=== PATIENT | female | born 1945 | race Caucasian/White ===

== ENCOUNTER 2016-10-02 12:53 | Inpatient (IN) | payer OTHER, MEDICARE ==
[~2016-10-02] VITALS: Ht 152.4 cm; Wt 77.1 kg
[~2016-10-02 12:53] MED LIST: COZAAR 50MG TAB50 MG PO; DIOVAN 160 MG160 MG PO; ELIQUIS5 MG PO; FLONASE120 SPRAY/ NASB; HYDRODIURIL 2525 MG PO; PROAIR HFA8.5 GM INH; XARELTO15 MG PO
--- NOTE | 2016-10-02 13:09 | ED GENERAL ADULT ---
History of Present Illness General Chief Complaint: General Adult Stated Complaint: BIBA, GENERAL WEAKNESS Source: patient, family, old records, EMS Exam Limitations: no limitations Vital Signs & Intake/Output Vital Signs & Intake/Output Vital Signs Date Time Temp Pulse Resp B/P Pulse O2 O2 Flow FiO2 Ox Delivery Rate 10/02 1831 98.3 70 18 121/57 97 Room Air 10/02 1452 99.0 85 18 110/62 94 Room Air 10/02 1443 100.7 10/02 1303 94 Room Air 10/02 1259 101.6 97 16 121/74 94 Room Air Allergies Coded Allergies: NO KNOWN ALLERGIES (03/01/12) Reconcile Medications Albuterol Sulfate (Proair Hfa) 90 MCG HFA.AER.AD 2 PUF INH Q4-6 PRN PRN BREATHING PROBLEMS (Reported) Apixaban (Eliquis) 5 MG TABLET 1 TAB PO BID BLOOD THINNER (Reported) Diltiazem HCl (Diltiazem 24HR ER) 120 MG CAP.ER.24H 1 CAP PO DAILY HEART ( Reported) Furosemide 20 MG TABLET 1 TAB PO DAILY WATER PILL (Reported) Lenalidomide (Revlimid) 10 MG CAPSULE 1 CAP PO DAILY UNKNOWN (Reported) Lidocaine HCl (Lidocaine) 5 % OINT...G. 1 SHASHI TOP TID PRN PAIN (Reported) Lorazepam 0.5 MG TABLET 1 TAB PO BIDP PRN ANXIETY (Reported) Oxycodone HCl (Oxycontin) 20 MG TAB.ER.12H 1 TAB PO BID PAIN (Reported) Oxycodone HCl 5 MG TABLET 1 TAB PO Q4 HRS NEEDED PRN PAIN (Reported) Pantoprazole Sodium 40 MG TABLET.DR 1 TAB PO DAILY GI (Reported) Polyethylene Glycol 3350 17 GRAM POWD.PACK 1 PAC PO DAILY LAXATIVE, CONSTIPATION (Reported) Sertraline HCl 50 MG TABLET 1 TAB PO DAILY MENTAL HEALTH (Reported) Valsartan/Hydrochlorothiazide (Diovan Hct 160-25 MG Tablet) 160 MG-25 MG TABLET 1 TAB PO DAILY HEART (Reported) Zolpidem Tartrate 5 MG TABLET 1 TAB PO QPM SLEEP (Reported) Triage Note: 71 Y/O FEMALE ML FROM HOME FOR EVAL OF GENERAL WEAKNESS. PT ARRVIES ALERT AND ORIENTED X 4, SPEAKING CLEARLY WITH NO DISTRESS NOTED. PT STATES SHE HAD BACK SURGERY IN JULY AND THEN WENT TO REHAB UNTIL 09/04/16; HAS NOT BEEN DOING WELL SINCE. STATES SHE HAS NO APPETITE/DECREASED PO INTAKE AND HAS BEEN VERY WEAK. TODAY WAS UNABLE TO WALK. PT DENIES COUGH OR URI SYMPTOMS. DENIES C/P. DENIES SOB. STATES SHE HAD A CATHETER IN REHAB AND AREA HAS BEEN "SENSATIVE SINCE". SINCE URINARY BURNING. TEMP ON ARRIVAL 101.6 PA GUILHERME Ruth INTO [facility] Triage Nurses Notes Reviewed? yes HPI: Patient is a 71-year-old female brought in by ambulance for evaluation of generalized weakness. Patient and her report generalized weakness for the past 2 days, progressively worsening. Patient is on chemotherapy for multiple myeloma, takes medication orally daily. Patient's reports that patient has been shaky over the past 2 days. Patient has not been able to ambulate secondary to her weakness. Positive fever measured in the emergency department, patient and her were unaware of her fever. Mild vaginal discomfort, patient is unsure if she has a urinary tract infection. Low back pain, has been intermittent and fluctuating since patient had a lumbar fusion 2 months ago. Pain is currently severe. Denies chest pain, dyspnea, abdominal pain, vomiting, diarrhea, rashes (ISAAC ALONZO) Past History Travel History Traveled to [place] past 21 day No Medical History Any Pertinent Medical History? see below for history Neurological: NONE EENT: NONE Cardiovascular: hypertension Respiratory: NONE Gastrointestinal: NONE Hepatic: NONE Renal: NONE Musculoskeletal: NONE Psychiatric: NONE Endocrine: NONE Blood Disorders: DVT, PE Cancer(s): MULTIPLE MYELOMA History of MRSA: No History of VRE: No History of CDIFF: No Pneumonia Vaccine: 07/26/11 Surgical History Surgical History: LUMBAR SURGERY july 2016 Psychosocial History Who do you live with Spouse Services at Home None What is your primary language Montserratian Tobacco Use: Never used Family History Family History, If Any: FATHER ([place]). Hx Contributory? No (ISAAC ALONZO) Review of Systems Review of Systems Constitutional: Reports: malaise, weakness. EENTM: Reports: no symptoms. Respiratory: Denies: cough, short of breath. Cardiovascular: Denies: chest pain. GI: Denies: abdominal pain, diarrhea, nausea, vomiting. Genitourinary: Denies: frequency, urgency. Musculoskeletal: Reports: back pain. Skin: Reports: no symptoms. Neurological/Psychological: Reports: no symptoms. Hematologic/Endocrine: Reports: no symptoms. Immunologic/Allergic: Reports: no symptoms. (ISAAC ALONZO) Physical Exam Physical Exam General Appearance: alert, awake Head: atraumatic, normal appearance Eyes: Bilateral: normal appearance, PERRL, EOMI. Ears, Nose, Throat: normal pharynx, normal ENT inspection, hearing grossly normal Neck: normal inspection, supple, full range of motion Respiratory: no respiratory distress, lungs clear Cardiovascular: tachycardia Gastrointestinal: soft, non-tender Back: normal range of motion, no vertebral tenderness, no paraspinal lumbar tenderness Extremities: 3+ bilateral lower extremity edema Neurologic/Psych: awake, alert, oriented x 3 Skin: warm/dry Lymphatic: no anterior cervical alexandre Core Measures ACS in differential dx? No CVA/TIA Diagnosis: No Severe Sepsis Present: No Septic Shock Present: No (ISAAC ALONZO) Progress Differential Diagnoses I considered the following diagnoses in my evaluation of the patient: Urinary tract infection, pneumonia, sepsis, bacteremia, influenza, viral syndrome Plan of Care: Orders Procedure Date/time Status Heart Healthy Diet 10/03 B Active CBC WITHOUT DIFFERENTIAL 10/03 06 Active BASIC ELECTROLYTES PLUS BUN&CR 10/03 0600 Active Heart Healthy Diet 10/02 D Complete Bui, Insertion/Removal/Asses 10/02 1809 Active Pathway - chart 10/02 1735 Active Patient Data 10/02 1735 Active RAPID VIRAL INFLUENZA A 10/[address] THOR SPINE W IV CONTRAST 10/[address] PELVIS W IV CONTRAST 10/[address] LUMB SPINE W IV CONTRAST 10/02 1714 Active Admit to inpatient 10/02 1624 Active Vital Signs 10/02 1624 Active Code Status 10/02 1624 Active LACTIC ACID 10/02 1609 Active Intake & Output 10/02 1505 Active URINALYSIS 10/02 1457 Complete RAPID VIRAL INFLUENZA A 10/02 1402 Complete CULTURE,URINE 10/02 1309 Active BLOOD CULTURE 10/02 1309 Active LACTIC ACID 10/02 1309 Complete COMPREHENSIVE METABOLIC PANEL 10/02 1309 Complete CBC WITHOUT DIFFERENTIAL 10/02 1309 Complete EKG 10/02 1309 Active PT Evaluate & Treat 10/02 UNK Active House Staff 10/02 UNK Active VTE Mechanical Prophylaxis 10/02 UNK Active Vital Signs 10/02 UNK Active Current Medications Sig/Saira Start time Last Medication Dose Stop Time Status Admin Ceftriaxone Sodium 1,000 MG DAILY 10/03 1000 AC (Rocephin) Sodium Chloride 100 ML (Normal Saline 0.9%) Diltiazem HCl 120 MG DAILY 10/03 1000 AC (Cardizem CD) Furosemide 20 MG DAILY 10/03 1000 AC (Lasix) Sertraline HCl 50 MG DAILY 10/03 1000 AC (Zoloft) Omeprazole 40 MG DAILY AC 10/03 0700 AC (Prilosec) Apixaban 5 MG BID 10/02 2199 AC (Eliquis) Oxycodone HCl 20 MG BID 10/02 220 AC (OxyCONTIN) Zolpidem Tartrate 5 MG QPM 10/02 220 AC (Ambien) Albuterol Sulfate 2 PUF Q4-6 PRN PRN 10/02 174 AC (Ventolin) Lorazepam 0.5 MG BID PRN 10/02 174 AC (Ativan) 10/09 174 Non-Formulary 0 SEE ADMIN CRITERIA 10/02 1744 UNVr Medication (NON FORMULARY) Oxycodone HCl 5 MG Q4 HRS NEEDED PRN 10/02 174 AC (Roxicodone) Acetaminophen 650 MG Q6P PRN 10/02 1730 AC (Tylenol) Sodium Chloride 1,000 ML ONCE ONE 10/02 1615 AC (Normal Saline 0.9%) 10/03 0534 Laboratory Tests 10/02/16 1432: Anion Gap 13, Estimated GFR > 60, BUN/Creatinine Ratio 13.8, Glucose 112 H, Lactic Acid 1.8, Calcium 9.1, Total Bilirubin 0.7, AST 26, ALT 33, Alkaline Phosphatase 95, Total Protein 6.8, Albumin 3.9, Globulin 2.9, Albumin/Globulin Ratio 1.3, CBC w Diff NO MAN DIFF REQ, RBC 3.67 L, MCV 93.6, MCH 31.0, RDW 15.0 H, MPV 9.1, Gran % 74.4, Lymphocytes % 13.8 L, Monocytes % 11.6 H, Eosinophils % 0.1, Basophils % 0.1, Absolute Granulocytes 8.4 H, Absolute Lymphocytes 1.6, Absolute Monocytes 1.3 H, Absolute Eosinophils 0, Absolute Basophils 0, PUBS MCHC 33.2 10/02/16 1139: Urine Color YEL, Urine Clarity CLDY H, Urine pH 6.0, Ur Specific [place] 1.020, Urine Protein 30 H, Urine Ketones NEG, Urine Nitrite POS H, Urine Bilirubin NEG, Urine Urobilinogen 0.2, Ur Leukocyte Esterase LARGE H, Ur Microscopic SEDIMENT EXAMINED, Urine RBC 1-3, Urine WBC PACKD H, Ur Epithelial Cells FEW, Urine Bacteria MANY H, Urine Mucus FEW, Urine Hemoglobin SMALL H, Urine Glucose NEG Microbiology 10/02 1715 NASOPHARYN: Influenza Virus A & B Rapid Smear - COMP 10/02 1514 NASOPHARYN: Influenza Virus A & B Rapid Smear - COMP 10/02 1445 BLOOD: Blood Culture - RECD 10/02 1432 BLOOD: Blood Culture - RECD 10/02 1139 URINE ROUT: Urine Culture - RECD 10/02/2016 3:07:34 PM: Discussed with Dr. Carrington 10/02/2016 4:29:31 PM: Results of labs, chest x-ray, urinalysis discussed with the patient and her family. IV ceftriaxone ordered for cover of urinary tract infection. Patient continues with generalized weakness and unable to safely ambulate. Discussed with Dr. Baires for admission. (WALLY VASQUEZ,ISAAC) Diagnostic Imaging: Viewed by Me: Radiology Read. Discussed w/RAD: Radiology Read. Radiology Impression: PATIENT: MARGAUX COFFEY PRESENT AGE: 71 PATIENT ACCOUNT NO: [id number] : 43 LOCATION: [facility] ORDERING PHYSICIAN: ISAAC VASQUEZ SERVICE DATE: 10/02/16 EXAM TYPE: RAD - XRY-PORTABLE CHEST XRAY EXAMINATION: XR PORTABLE CHEST CLINICAL INFORMATION: 71-year-old female with weakness and fever. Evaluate for pneumonia. COMPARISON: Chest radiograph 03/05/2014 TECHNIQUE: Portable AP view of the chest was obtained. FINDINGS: Limited evaluation secondary to low lung volumes and AP lordotic positioning. Cardiac silhouette is enlarged. No definite focal consolidation. No pleural effusions or pneumothorax. No acute osseous abnormality. IMPRESSION: Low lung volumes. No definite focal consolidation; however, evaluation is limited. Recommend follow-up PA and lateral radiographs when patient able. DICTATED BY: GABRIEL DYER DO DATE/TIME DICTATED:10/02/161401 FIBREGLASS LAY UP WORKER:ANNA DATE/TIME TRANSCRIBED:03/10/17 / 1402 CONFIDENTIAL, DO NOT COPY WITHOUT APPROPRIATE AUTHORIZATION. <Electronically signed in Other Vendor System> SIGNED BY: GOMEZ DEVLINGABRIEL G 10/02/16 1410 Initial ED EKG: SINUS RHYTHM WITH MULTIPLE PREMATURE BEATS NO ACUTE ST/T WAVE CHANGES COMPARED TO PREVIOUS EKG (ISAAC ALONZO) Departure Departure Time of Disposition: 1620 Disposition: STILL A PATIENT Condition: Stable Clinical Impression Primary Impression: Sepsis due to urinary tract infection Referrals: ROYER SHAW MD (PCP/Family) Departure Forms: Customer Survey General Discharge Information Admission Note Spoke With: BARRERA BAIRES MD Documentation of Exam: Documentation of any treatments & extenuating circumstances including Concerns Regarding Discharge (functional status, medication knowledge or non-compliance, living conditions, etc.) that warrant an admission rather than observation: IV antibiotics, dang culture. Patient on chemotherapy(immunosuppressed state) with fevers and severe weakness. Significant change from patient's functional baseline. Patient does not appear safe for discharge (ISAAC ALONZO) PA/OUTER DIAMETER GRINDER Co-Sign Statement Statement: ED Attending supervision documentation- [X] I saw and evaluated the patient. I have also reviewed all the pertinent lab results and diagnostic results. I agree with the findings and the plan of care as documented in the PA's/OUTER DIAMETER GRINDER's documentation. [] I have reviewed the ED Record and agree with the PA's/OUTER DIAMETER GRINDER's documentation. [] Additions or exceptions (if any) to the PAs/OUTER DIAMETER GRINDER's note and plan are summarized below: [] (HIRO CARRINGTON DO) Critical Care Note Critical Care Note Critical Care Time: non-applicable (ISAAC ALONZO)
--- NOTE | 2016-10-02 14:10 | RADIOLOGY REPORT ---
EXAMINATION: XR PORTABLE CHEST CLINICAL INFORMATION: 71-year-old female with weakness and fever. Evaluate for pneumonia. COMPARISON: Chest radiograph 03/05/2014 TECHNIQUE: Portable AP view of the chest was obtained. FINDINGS: Limited evaluation secondary to low lung volumes and AP lordotic positioning. Cardiac silhouette is enlarged. No definite focal consolidation. No pleural effusions or pneumothorax. No acute osseous abnormality. IMPRESSION: Low lung volumes. No definite focal consolidation; however, evaluation is limited. Recommend follow-up PA and lateral radiographs when patient able.
[2016-10-02] MEDS ORDERED: DILTIAZEM 24HR120 MG PO (14:32)
[2016-10-02] MEDS ORDERED: OXYCONTIN20 M1 PO (14:32)
[2016-10-02] MEDS ORDERED: FUROSEMIDE20 M1 PO (14:32)
[2016-10-02] MEDS ORDERED: ELIQUIS5 M1 PO (14:33)
[2016-10-02] MEDS ORDERED: PANTOPRAZOLE SO40 M1 PO (14:33)
[2016-10-02] MEDS ORDERED: OXYCODONE HCL5 M1 PO (14:34)
[2016-10-02] MEDS ORDERED: REVLIMID10 M1 PO (14:34)
[2016-10-02] MEDS ORDERED: ZOLPIDEM TARTRAT5 M1 PO (14:35)
[2016-10-02] MEDS ORDERED: POLYETHYLENE GL17 GM PO (14:36)
[2016-10-02] MEDS ORDERED: SERTRALINE HCL50 MG PO (14:36)
[2016-10-02] MEDS ORDERED: LIDOCAINE35.44 GM TOP (14:37)
[2016-10-02] MEDS ORDERED: LORAZEPAM0.5 M1 PO (14:38)
[2016-10-02] MEDS ORDERED: DIOVAN HCT 1601 EAC1 PO (14:39)
[2016-10-02 15:03] LABS: ABSOLUTE BASOPHIL COUNT 0 /CUMM (0.0-0.2); ABSOLUTE EOSINOPHIL COUNT 0 /CUMM (0.0-0.7); ABSOLUTE GRANULOCYTE CT 8.4 /CUMM (1.4-6.5); ABSOLUTE LYMPH COUNT 1.6 /CUMM (1.2-3.4); ABSOLUTE MONOCYTE COUNT 1.3 /CUMM (0.10-0.60); BASOPHIL % 0.1 % (0.0-2.0); EOSINOPHIL % 0.1 % (0-5); GRANULOCYTE % 74.4 % (42.2-75.2); HEMATOCRIT 34.3 % (37-47); MEAN CORPUSCULAR HGB CONC 33.2 G/DL (33.0-37.0); MEAN CORPUSCULAR VOLUME 93.6 FL (81.0-99.0); MEAN PLATELET VOLUME 9.1 FL (7.4-10.4); PLATELET COUNT 347 /CUMM (130-400); RED BLOOD CELL CT 3.67 /CUMM (4.20-5.40); WHITE BLOOD CELL COUNT 11.3 /CUMM (4.8-10.8)
--- NOTE | 2016-10-02 17:29 | History & Physical ---
SENTHIL MARR,[facility] 10/02/16 6919: General Information and HPI MD Statement: I have seen and personally examined MARGAUX COFFEY and documented this H&P. The patient is a 71 year old F who presented with a patient stated chief complaint of [I feel weak and have muscle aches and pains]. Source of Information: patient, family, old records Exam Limitations: no limitations History of Present Illness: This is a 71-year-old lady with past history of provoked DVT in 2012 which required 6 months anticoagulation, hypertension, recent diagnosis of multiple myeloma in January 2016, recent back surgery in July 2016 with multi disc level noé and screw placement, now on anticoagulation because of her myeloma for DVT prophylaxis, recent IVC filter placement that presented to the emergency room with her family with a chief complaint of weakness and muscle aches and pains that have been going on for greater than 48 hours. Patient states that after her surgery she went to short-term rehabilitation where she developed a urinary tract infection. They had to straight catheter there are couple of times because she states that "my bladder fell asleep". Since being home from her surgery she ambulates minimally with a walker states that she gets significant back pain. While in the ER her urinalysis revealed a urinary tract infection and she was found to be febrile however the patient herself denied feeling warm or merit any tactile fevers. At present she denies any chest Pain, shortness of breath, nausea, vomiting, diarrhea, fevers, chills, recent illnesses or sick contacts. She denies any UTI like symptoms. Allergies/Medications Allergies: Coded Allergies: NO KNOWN ALLERGIES (03/01/12) Home Med list Albuterol Sulfate (Proair Hfa) 90 MCG HFA.AER.AD 2 PUF INH Q4-6 PRN PRN BREATHING PROBLEMS (Reported) Apixaban (Eliquis) 5 MG TABLET 1 TAB PO BID BLOOD THINNER (Reported) Diltiazem HCl (Diltiazem 24HR ER) 120 MG CAP.ER.24H 1 CAP PO DAILY HEART ( Reported) Furosemide 20 MG TABLET 1 TAB PO DAILY WATER PILL (Reported) Lenalidomide (Revlimid) 10 MG CAPSULE 1 CAP PO DAILY UNKNOWN (Reported) Lidocaine HCl (Lidocaine) 5 % OINT...G. 1 SHASHI TOP TID PRN PAIN (Reported) Lorazepam 0.5 MG TABLET 1 TAB PO BIDP PRN ANXIETY (Reported) Oxycodone HCl (Oxycontin) 20 MG TAB.ER.12H 1 TAB PO BID PAIN (Reported) Oxycodone HCl 5 MG TABLET 1 TAB PO Q4 HRS NEEDED PRN PAIN (Reported) Pantoprazole Sodium 40 MG TABLET.DR 1 TAB PO DAILY GI (Reported) Polyethylene Glycol 3350 17 GRAM POWD.PACK 1 PAC PO DAILY LAXATIVE, CONSTIPATION (Reported) Sertraline HCl 50 MG TABLET 1 TAB PO DAILY MENTAL HEALTH (Reported) Valsartan/Hydrochlorothiazide (Diovan Hct 160-25 MG Tablet) 160 MG-25 MG TABLET 1 TAB PO DAILY HEART (Reported) Zolpidem Tartrate 5 MG TABLET 1 TAB PO QPM SLEEP (Reported) Past History Travel History Traveled to [place] past 21 day No Medical History Neurological: NONE EENT: NONE Cardiovascular: hypertension Respiratory: NONE Gastrointestinal: NONE Hepatic: NONE Renal: NONE Musculoskeletal: NONE Psychiatric: NONE Endocrine: NONE Blood Disorders: NONE, PE Cancer(s): MULTIPLE MYELOMA History of MRSA: No History of VRE: No History of CDIFF: No Surgical History Surgical History: LUMBAR SURGERY JULY 2016 Past Family/Social History Family History Relations & Conditions if any FATHER ([place]). Psychosocial History Services at Home: None Review of Systems Review of Systems Constitutional: Reports: see HPI. Exam & Diagnostic Data Last 24 Hrs of Vital Signs/I&O Vital Signs Date Time Temp Pulse Resp B/P Pulse O2 O2 Flow FiO2 Ox Delivery Rate 10/02 1452 99.0 85 18 110/62 94 Room Air 10/02 1443 100.7 10/02 1303 94 Room Air 10/02 1259 101.6 97 16 121/74 94 Room Air Intake & Output 10/02 1600 10/02 0800 10/02 0000 Intake Total 1000 Output Total Balance 1000 Intake, IV 1000 Patient 185 lb Weight Physical Exam General Appearance Alert, Oriented X3, Cooperative HEENT Atraumatic, PERRLA, EOMI Lymphatic Axillary nl Cardiovascular Regular Rate, Normal S1, Normal S2 Lungs Clear to Auscultation, Normal Air Movement Abdomen Normal Bowel Sounds, Soft, No Tenderness Extremities 2+ LE EDEMA Last 24 Hrs of Labs/Robin: Laboratory Tests 10/02/16 1432: Anion Gap 13, Estimated GFR > 60, BUN/Creatinine Ratio 13.8, Glucose 112 H, Lactic Acid 1.8, Calcium 9.1, Total Bilirubin 0.7, AST 26, ALT 33, Alkaline Phosphatase 95, Total Protein 6.8, Albumin 3.9, Globulin 2.9, Albumin/Globulin Ratio 1.3, CBC w Diff NO MAN DIFF REQ, RBC 3.67 L, MCV 93.6, MCH 31.0, RDW 15.0 H, MPV 9.1, Gran % 74.4, Lymphocytes % 13.8 L, Monocytes % 11.6 H, Eosinophils % 0.1, Basophils % 0.1, Absolute Granulocytes 8.4 H, Absolute Lymphocytes 1.6, Absolute Monocytes 1.3 H, Absolute Eosinophils 0, Absolute Basophils 0, PUBS MCHC 33.2 10/02/16 1139: Urine Color YEL, Urine Clarity CLDY H, Urine pH 6.0, Ur Specific [place] 1.020, Urine Protein 30 H, Urine Ketones NEG, Urine Nitrite POS H, Urine Bilirubin NEG, Urine Urobilinogen 0.2, Ur Leukocyte Esterase LARGE H, Ur Microscopic SEDIMENT EXAMINED, Urine RBC 1-3, Urine WBC PACKD H, Ur Epithelial Cells FEW, Urine Bacteria MANY H, Urine Mucus FEW, Urine Hemoglobin SMALL H, Urine Glucose NEG Microbiology 10/02 1514 NASOPHARYN: Influenza Virus A & B Rapid Smear - COMP 10/02 1445 BLOOD: Blood Culture - RECD 10/02 1432 BLOOD: Blood Culture - RECD 10/02 1139 URINE ROUT: Urine Culture - RECD Diagnostic Data EKG Results Rate 97, SD 140, QRS 78, QTC 452 PVCs CXR Results IMPRESSION: Low lung volumes. No definite focal consolidation; however, evaluation is limited. Recommend follow-up PA and lateral radiographs when patient able. Assessment/Plan Assessment: Assessment- 1. Urosepsis 2. Hx of Multiple myeloma 3. Hx of recent back hardware placement 4. B/L LE pitting edema 2/2 volume overload 5. HTN 6. Chronic back pain 7. Depression Plan- GM admit Vitals per protocol d/c IVF 2/2 pitting edema Lasix 20 mg IV, 1 dose Panculture IV ceftriaxine 1 gm daily Repeat flu swab CT thoracic, lumbar and sacral spine to r/o abscess vs infected hardware Continue home meds Heat healthy diet Pain pathway DVT ppx with Eliquis Full code As Ranked By This Provider Problem List: 1. Sepsis due to urinary tract infection 2. Hypertension 3. Pulmonary embolism Core Measures/Miscellaneous Acute Coronary Syndrome ACS Diagnosis: No Cerebrovascular Accident CVA/TIA Diagnosis: No Congestive Heart Failure CHF Diagnosis: No Venous Thromboembolism VTE Risk Factors: Age > 40 No Mech VTE prophylaxis d/t: No contraindications No VTE Pharm Prophylaxis d/t: No contraindications VTE Diagnosis: No VTE Type: NONE VTE Confirmed by (Test): NONE Severe Sepsis Severe Sepsis Present: No Septic Shock Septic Shock Present: No Miscellaneous Documentation Attending Case Discussed With: DR. BAIRES Primary Care Physician: ROYER SHAW MD Patient sees these Specialists ONCOLOGIST- DR. PETERSON PCP- DR. SHAW Level of Patient Care: General Medicine Resident Review Statement Resident Statement: examined this patient, discussed with spring internship BARRERA BAIRES MD 10/02/16 2199: Attending MD Review Statement Attending Statement Attending MD Statement: examined this patient, discuss w/resident/PA/HAIR BOILER OPERATOR, agreed w/resident/PA/HAIR BOILER OPERATOR, reviewed EMR data (avail)
--- NOTE | 2016-10-02 20:38 | CT SCAN REPORT ---
EXAMINATION: CT OF THE THORACIC SPINE WITH CONTRAST CT OF THE LUMBAR SPINE WITHOUT CONTRAST CLINICAL INFORMATION: Rule out abscess versus infected hardware. Back pain. COMPARISON: None. TECHNIQUE: Multidetector helical imaging was performed in the axial plane following intravenous administration of 94 mL of Optiray 320. Dose is 2102.07 mGy-cm. FINDINGS: The patient has had prior vertebral body augmentation at the T12 level with cement material visible in the vertebral body on the right side. Posterior fusion rods and transpedicular screws span from the T10-L2 levels. There is no abnormal lucency around the pedicle screws. No hardware fracture is identified. Particulate bone graft material is present in the posterior paraspinal soft tissues without solid incorporation. Soft tissue stranding is present in the posterior paraspinal soft tissues, though no obvious organized peripherally enhancing drainable fluid collection is seen. The retroperitoneal soft tissues at the level of the fusion hardware appear normal. The psoas muscles are normal in appearance. Lytic changes in the right T12 pedicle, posterior elements, and rib are presumably due to the patient's known history of multiple myeloma. Significant lower cervical spondylosis is noted. There is a mild anterolisthesis at C7-T1. No compression fractures are identified. There is moderate multilevel mid thoracic disc space narrowing. There are no compression fractures or significant central canal stenosis. 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 There is a mild anterior subluxation at L5-S1 with unroofing of the disc. Significant foraminal narrowing is also noted at the L5-S1 levels, worse on the right side. There are posterior disc bulges throughout the lumbar spine with mild multilevel central canal stenosis and facet arthropathy. No abnormal soft tissue enhancement is identified. Multiple calcifications are visible in the thyroid gland. The thoracic paraspinal soft tissues are unremarkable superior to the level of hardware. A small right-sided layering pleural effusion is visible. There are dependent atelectatic changes in both lungs. An IVC filter is in place. There is a small hiatal hernia. The renal nephrograms are symmetric. IMPRESSION: Posterior fusion hardware in place spanning from the T10-L2 levels without fracture or disruption. Particulate bone graft material in the posterior paraspinal soft tissues around aforementioned hardware without solid incorporation. Imaging findings of prior vertebral body augmentation with a mild loss of vertebral body height at the T12 level. No drainable fluid collection. Multilevel thoracolumbar spondylosis and mild anterolisthesis at L5-S1. Imaging findings discussed with Dr. Melton at 8:30 PM on 10/02/2016.
--- NOTE | 2016-10-02 20:41 | CT SCAN REPORT ---
EXAMINATION: CT PELVIS WITH IV CONTRAST CLINICAL INFORMATION: Back pain. Evaluate for abscess versus infected hardware. Status post fusion of the thoracolumbar spine in July 2016. COMPARISON: None. TECHNIQUE: Helical scanning was performed with submillimeter collimation through the pelvis with 94 mL of Optiray 320 intravenous contrast. Sagittal and coronal multiplanar 2-D reconstructions were obtained. DLP: 975 mGy-cm FINDINGS: RADIO ANNOUNCER: Yam Curer images of the pelvis demonstrate partially visualized longitudinal rods and transpedicular screws along the thoracolumbar spine. An IVC filter is present within the right hemiabdomen. PELVIS: The urinary bladder is decompressed by an indwelling Bui catheter. Excreted intravenous contrast is identified within the bilateral distal ureters. The imaged loops of bowel within the lower abdomen and pelvis appear unremarkable. No organizing fluid collections are present within the imaged portions of the lower abdomen or pelvis. There is no significant deep pelvic or inguinal adenopathy. The uterus is surgically absent. No adnexal masses are identified. OSSEOUS STRUCTURES: No acute abnormality of the pelvis is identified. No grossly displaced pelvic fractures are noted. The iliopectineal and ilioischial lines are intact. There is no appreciable fracture of the bilateral hips and there is no appreciable dislocation of the bilateral hips. There are partially visualized degenerative changes of the lower lumbar spine with grade 1 anterolisthesis of L5 on S1. There is partially visualized moderate facet arthrosis of the lumbosacral spine. IMPRESSION: 1. No acute osseous abnormality involving the pelvis. No organizing fluid collections are visualized within the imaged portions of the lower abdomen or pelvis or within the imaged soft tissues of the pelvis. 2. Partially visualized degenerative changes of the lower lumbosacral spine, with grade 1 anterolisthesis of L5 on S1.
[2016-10-02 23:45] VITALS: BP 130/68
[2016-10-03 06:47] VITALS: BP 140/72
--- NOTE | 2016-10-03 08:01 | PN- Housestaff ---
See Addendum Subjective Follow-up For: Urosepsis Hf of Multiple myeloma Subjective: Ms Case was seen and examined this morning. She is resting comfortably in bed. Patient reports overnight she continued to be in pain. Rated at a 9 out of 10 in severity. Described as a dull pain. Worse with movement and pressure. She denies any burning, dysuria, frequency, foul-smelling urine. She does currently have a Bui in place. Patient also endorses bilateral lower extremity edema. She denies any fever, chills, nausea, vomiting. is at bedside and helped with part of the clinical encounter. Review of Systems Constitutional: Reports: see HPI. Objective Last 24 Hrs of Vital Signs/I&O Vital Signs Date Time Temp Pulse Resp B/P Pulse O2 O2 Flow FiO2 Ox Delivery Rate 10/03 1505 98.7 87 20 122/66 93 10/03 1436 98.6 10/03 1400 102.5 10/03 1310 102.5 10/03 1149 102.9 10/03 1146 102.9 10/03 0800 Room Air 10/03 0647 98.5 84 18 140/72 94 Room Air 10/02 2345 99.0 75 18 130/68 93 Room Air 10/02 1831 98.3 70 18 121/57 97 Room Air Intake & Output 10/03 1600 10/03 0800 10/03 0000 Intake Total 740 360 Output Total 350 400 700 Balance 390 -40 -700 Intake, IV 500 Intake, Oral 240 360 Number 0 Bowel Movements Output, Urine 350 400 700 Patient 77.111 kg 77.111 kg Weight Physical Exam General Appearance: Alert, Oriented X3, Cooperative Cardiovascular: Regular Rate, Normal S1, Normal S2 Lungs: Clear to Auscultation Abdomen: Normal Bowel Sounds, Soft, No Tenderness Neurological: Normal Speech Extremities: No Clubbing, No Cyanosis, Edema 1+ Current Medications: Current Medications Sig/Saira Start time Last Medication Dose Route Stop Time Status Admin Acetaminophen 1,000 MG ONCE ONE 10/03 1345 DC 10/03 N/A 1 UNIT IV 10/03 1359 1400 Acetaminophen 650 MG Q6P PRN 10/02 1730 AC 10/03 PO 1149 Albuterol Sulfate 2 PUF Q4-6 PRN PRN 10/02 1745 AC INH Apixaban 5 MG BID 10/02 2200 AC 10/03 PO 0921 Ceftazidime 2,000 MG IQ8 10/03 1600 AC IV Ceftriaxone Sodium 1,000 MG DAILY 10/04 1000 CAN IV Ceftriaxone Sodium 1,000 MG DAILY 10/03 1000 DC 10/03 Sodium Chloride 100 ML IV 0923 Ceftriaxone Sodium 0 .STK-MED ONE 10/02 1726 DC .ROUTE Diltiazem HCl 120 MG DAILY 10/03 1000 AC 10/03 PO 0921 Docusate Sodium 100 MG BID 10/03 1000 AC 10/03 PO 0921 Furosemide 20 MG DAILY 10/03 1000 AC 10/03 PO 0922 Furosemide 0 .STK-MED ONE 10/02 1757 DC IV Furosemide 20 MG ONCE ONE 10/02 1745 DC 10/02 IV 10/02 1746 1807 Ibuprofen 400 MG ONCE ONE 10/03 1345 CAN PO 10/03 1346 Lorazepam 0.5 MG BID PRN 10/02 1745 AC 10/03 PO 10/09 1744 1143 Omeprazole 40 MG DAILY AC 10/03 0700 AC 10/03 PO 0604 Oxycodone HCl 20 MG BID 10/02 2200 AC 10/03 PO 0922 Oxycodone HCl 5 MG Q4 HRS NEEDED PRN 10/02 1745 AC 10/03 PO 1144 Polyethylene Glycol 17 GM DAILY 10/03 1000 AC 10/03 PO 0923 Sertraline HCl 50 MG AT BEDTIME 10/03 2200 AC PO Sertraline HCl 50 MG DAILY 10/03 1000 DC PO Sertraline HCl 50 MG ONCE ONE 10/03 0030 DC 10/03 PO 10/03 0031 0031 Sodium Chloride 500 ML BOLUS ONE 10/03 1215 DC 10/03 IV 10/03 1314 1317 Sodium Chloride 1,000 ML ONCE ONE 10/02 1615 DC IV 10/03 0534 Sodium Chloride 1,000 ML ONCE ONE 10/02 1315 DC 10/02 IV 10/02 2114 1443 Zolpidem Tartrate 5 MG QPM 10/02 220 AC 10/03 PO 0043 Last 24 Hrs of Lab/Robin Results Last 24 Hrs of Labs/Mics: Laboratory Tests 10/03/16 1444: Lactic Acid 0.8 10/03/16 0756: Anion Gap 9, Estimated GFR > 60, BUN/Creatinine Ratio 13.3, Creatine Kinase 85, CBC w Diff NO MAN DIFF REQ, RBC 3.19 L, MCV 94.4, MCH 31.1 H, RDW 14.8 H, MPV 8.7, Gran % 72.7, Lymphocytes % 11.9 L, Monocytes % 13.8 H, Eosinophils % 1.5, Basophils % 0.1, Absolute Granulocytes 6.3, Absolute Lymphocytes 1.0 L, Absolute Monocytes 1.2 H, Absolute Eosinophils 0.1, Absolute Basophils 0, PUBS MCHC 33.0 Microbiology 10/03 1224 BLOOD: Blood Culture - RECD 10/03 1224 BLOOD: Blood Culture - RECD 10/03 1159 URINE ROUT: Urine Culture - COLB 10/03 115 LOWER RESP: Respiratory Culture - COLB 10/03 115 LOWER RESP: Gram Stain - COLB 10/02 1715 NASOPHARYN: Influenza Virus A & B Rapid Smear - COMP Assessment/Plan Assessment: Ms Case is a 71-year-old woman with past medical history of multiple myeloma, hypertension and chronic back pain who presented to the emergency department following generalized weakness status post recently been discharged from short term rehabilitation. Urosepsis. On admission the patient did have an elevated white count of 11.3. This is subsequently come down to 8.7. She did have a evidence of a dirty urine and was started on ceftriaxone. The patient continued to be febrile. Her antibiotic has been switched to ceftazidime IV 2000 mg every 8. Repeat blood cultures have been ordered. Urine cultures were positive for gram-negative rods. Lasix 20 mg IV, 1 dose, given yesterday. Repeat flu swab has been negative. Owing to decreased mentation the patient was bolused 1 time 500 milliliters. Second visit to the patient after she received this bolus did reveal that the patient was feeling better. Following the recent administration of the IV Tylenol the fever did break.102.5-->98.7. Repeat chest x-ray ordered which showed no evidence of pneumonia or consolidation. A PA lateral x-ray was ordered showed no evidence of pneumonia or consolidation. Decreased Mentation and UE tremors Was called to the patient's bedside by the family stating that they were worried about the patient having bilateral upper extremity tremors as well as decreased mentation. Initial exam were within normal limits limits. No neurological deficits were noted. Saturations were checked patient was saturating 93% on room air. General conditioning Patient was able to work with PT this a.m. Diet Heat healthy diet DVT prophylaxis Eliquis Code Full code Problem List: 1. Sepsis due to urinary tract infection 2. Dyspnea 3. Asthma 4. Hypertension Pain Ratin Pain Location: Neck and Back Pain Pain Goal: Remain pain free Pain Plan: Oxycodone Tomorrow's Labs & Rationales: CBC: Monitor white cell count in the setting of acute infection. BEP: Monitor electrolytes.
[2016-10-03 09:00] LABS: ABSOLUTE BASOPHIL COUNT 0 /CUMM (0.0-0.2); ABSOLUTE EOSINOPHIL COUNT 0.1 /CUMM (0.0-0.7); ABSOLUTE GRANULOCYTE CT 6.3 /CUMM (1.4-6.5); ABSOLUTE MONOCYTE COUNT 1.2 /CUMM (0.10-0.60); BASOPHIL % 0.1 % (0.0-2.0); EOSINOPHIL % 1.5 % (0-5); GRANULOCYTE % 72.7 % (42.2-75.2); HEMATOCRIT 30.1 % (37-47); MEAN CORPUSCULAR HGB 31.1 PG (27.0-31.0); MEAN CORPUSCULAR VOLUME 94.4 FL (81.0-99.0); MEAN PLATELET VOLUME 8.7 FL (7.4-10.4); PLATELET COUNT 304 /CUMM (130-400); RBC DISTRIBUTION WIDTH 14.8 % (11.5-14.5); RED BLOOD CELL CT 3.19 /CUMM (4.20-5.40); WHITE BLOOD CELL COUNT 8.7 /CUMM (4.8-10.8)
--- NOTE | 2016-10-03 13:24 | RADIOLOGY REPORT ---
EXAMINATION: XR CHEST CLINICAL INFORMATION: Fever and chills. Evaluate for pneumonia. COMPARISON: Chest x-ray dated 10/02/2016 and 03/05/2014. TECHNIQUE: AP and lateral views of the chest were obtained. FINDINGS: Cardiac mediastinal silhouette is enlarged. Mild ectasia and tortuosity of the aorta is seen. Lungs bilaterally are symmetrically expanded. Evaluation on lateral view is limited due to underpenetration. No consolidation, effusion or pneumothorax. Minimal linear subsegmental atelectasis in both lung bases. Lower thoracic spinal fusion hardware included partially. IMPRESSION: 1. No focal pneumonia. 2. Mild bibasilar subsegmental atelectasis. 3. Cardiomegaly.
[2016-10-03 15:05] VITALS: BP 122/66
--- NOTE | 2016-10-03 17:16 | Admission Certification ---
Admission Certification Certification Statement - As attending physician, I certify that at the time of - admission, based on clinical presentation, severity of - symptoms, need for further diagnostic testing and - therapeutic interventions, and risk of adverse outcomes - without in-hospital treatment, in my clinical assessment, - this patient requires an acute hospital stay for a minimum - of two nights or longer. I have also considered psychsocial - factors such as support system, advanced age, financial - issues, cognitive issues, and failed out-patient treatments, - past re-admission history, safety of patient, and lack of - compliance as applicable. Specific rationale supporting this admission is: Sepsis and delirium
[2016-10-03 22:26] VITALS: BP 110/60
[2016-10-04 07:01] VITALS: BP 130/64
--- NOTE | 2016-10-04 08:36 | PN- Housestaff ---
ARASH MARR,JOSEPH 10/04/16 0836: Subjective Follow-up For: Urosepsis Hf of Multiple myeloma Subjective: I saw and examined the patient today morning She spiked a fever today again, despite change in antibiotics. Her left hand dorsal region swollen and bruised due to thrombophlebitis. patient is also concerned about not having bowel movement for the past 5 days. Review of Systems Constitutional: Reports: see HPI, fever, malaise, weakness. Comments: ROS negative except the above. Objective Last 24 Hrs of Vital Signs/I&O Vital Signs Date Time Temp Pulse Resp B/P Pulse O2 O2 Flow FiO2 Ox Delivery Rate 10/04 0701 100.1 90 22 130/64 92 Room Air 10/03 2226 97.7 69 22 110/60 95 Room Air 10/03 1505 98.7 87 20 122/66 93 10/03 1436 98.6 10/03 1400 102.5 10/03 1310 102.5 10/03 1149 102.9 10/03 1146 102.9 Intake & Output 10/04 1600 10/04 0800 10/04 0000 Intake Total 480 Output Total 250 200 Balance -250 280 Intake, Oral 480 Output, Urine 250 200 Physical Exam General Appearance: Alert, Oriented X3, Cooperative, No Acute Distress Skin: No Breakdown, bruise in left hand dorsal region HEENT: Atraumatic, PERRLA Neck: Supple, No JVD Cardiovascular: Normal S1, Normal S2 Lungs: Clear to Auscultation, Normal Air Movement Abdomen: Normal Bowel Sounds, No Tenderness, distended Current Medications: Current Medications Sig/Saira Start time Last Medication Dose Route Stop Time Status Admin Acetaminophen 1,000 MG ONCE ONE 10/03 1345 DC 10/03 N/A 1 UNIT IV 10/03 1359 1400 Acetaminophen 650 MG .STK-MED ONE 10/03 1146 DC PO 10/03 1147 Acetaminophen 650 MG Q6P PRN 10/02 1730 AC 10/03 PO 1149 Albuterol Sulfate 2 PUF Q4-6 PRN PRN 10/02 1745 AC INH Apixaban 5 MG BID 10/02 2200 AC 10/03 PO 2046 Ceftazidime 2,000 MG IQ8 10/03 1600 AC 10/04 IV 0037 Ceftriaxone Sodium 1,000 MG DAILY 10/04 1000 CAN IV Ceftriaxone Sodium 1,000 MG DAILY 10/03 1000 DC 10/03 Sodium Chloride 100 ML IV 0923 Diltiazem HCl 120 MG DAILY 10/03 1000 AC 10/03 PO 0921 Docusate Sodium 100 MG BID 10/03 1000 AC 10/03 PO 2046 Furosemide 20 MG DAILY 10/03 1000 AC 10/03 PO 0922 Ibuprofen 400 MG ONCE ONE 10/03 1345 CAN PO 10/03 1346 Lorazepam 0.5 MG BID PRN 10/02 1745 AC 10/03 PO 10/09 1744 1143 Omeprazole 40 MG DAILY AC 10/03 0700 AC 10/04 PO 0613 Oxycodone HCl 20 MG BID 10/02 2200 AC 10/03 PO 2046 Oxycodone HCl 5 MG Q4 HRS NEEDED PRN 10/02 1745 AC 10/04 PO 0615 Polyethylene Glycol 17 GM DAILY 10/03 1000 AC 10/03 PO 0923 Sertraline HCl 50 MG AT BEDTIME 10/03 2200 AC 10/03 PO 2046 Sodium Chloride 500 ML BOLUS ONE 10/03 1215 DC 10/03 IV 10/03 1314 1317 Zolpidem Tartrate 5 MG QPM 10/02 2200 AC 10/03 PO 2045 Last 24 Hrs of Lab/Robin Results Last 24 Hrs of Labs/Mics: Laboratory Tests 10/04/16 0711: Sodium Pending, Potassium Pending, Chloride Pending, Carbon Dioxide Pending, Anion Gap Pending, BUN Pending, Creatinine Pending, BUN/Creatinine Ratio Pending , CBC w Diff Pending, WBC Pending, RBC Pending, Hgb Pending, Hct Pending, MCV Pending, MCH Pending, RDW Pending, Plt Count Pending, MPV Pending, PUBS MCHC Pending 10/03/16 1444: Lactic Acid 0.8 Microbiology 10/03 1630 URINE ROUT: Urine Culture - RECD 10/03 1224 BLOOD: Blood Culture - RECD 10/03 1224 BLOOD: Blood Culture - RECD 10/03 1159 LOWER RESP: Respiratory Culture - COLB 10/03 1159 LOWER RESP: Gram Stain - COLB Assessment/Plan Assessment: Ms Case is a 71-year-old woman with past medical history of multiple myeloma, hypertension and chronic back pain who presented to the emergency department following generalized weakness status post recently been discharged from short term rehabilitation. Urosepsis. On admission the patient did have an elevated white count of 11.3. This is subsequently come down to 8.7. She did have a evidence of a dirty urine and was started on ceftriaxone. The patient continued to be febrile. she was put back on ceftriaxone to ceftazidime. IF she continued to produce fevers, consider CT abdomen and pelvis with contrast for ruling out abscess. Repeat blood cultures have been ordered. Urine cultures were positive for gram-negative rods. Lasix 20 mg IV, 1 dose so far for dyspnea. Repeat flu swab has been negative. Owing to decreased mentation the patient was bolused 1 time 500 milliliters. Second visit to the patient after she received this bolus did reveal that the patient was feeling better. Following the recent administration of the IV Tylenol the fever did break.102.5-->98.7. Repeat chest x-ray ordered which showed no evidence of pneumonia or consolidation. A PA lateral x-ray was ordered showed no evidence of pneumonia or consolidation. Decreased Mentation and UE tremors Was called to the patient's bedside by the family stating that they were worried about the patient having bilateral upper extremity tremors as well as decreased mentation. Initial exam were within normal limits limits. No neurological deficits were noted. Saturations were checked patient was saturating 93% on room air. General conditioning Patient was able to work with PT this a.m. Psych consult as appears depressed. Diet Heat healthy diet DVT prophylaxis Eliquis Code Full code Problem List: 1. Hypertension 2. Sepsis due to urinary tract infection 3. Asthma 4. Dyspnea Pain Ratin Pain Location: left hand Pain Goal: Pain 4 or less Pain Plan: Tylenol Motrin one dose given Tomorrow's Labs & Rationales: cbc to monitor for urosepsis bep for hypokalemia BARRERA BAIRES MD 10/04/16 1504: Attending MD Review Statement Attending Statement Attending MD Statement: examined this patient, discuss w/resident/PA/[employer], agreed w/resident/PA/[employer], reviewed EMR data (avail) Attending Assessment/Plan: 71F PMH provoked DVT in 2012 which required 6 months anticoagulation, hypertension, recent diagnosis of multiple myeloma in January 2016, recent back surgery in July 2016 with multi disc level noé and screw placement, now on anticoagulation because of her myeloma for DVT prophylaxis, recent IVC filter placement admitted for sepsis secondary to UTI. Patient's mental status is much improved today. She is awake and alert and back to her baseline. She is diaphoretic, and complains of pain on the dorsum of her left hand where an IV had been attempted on admission. Her appetite is decreased but she otherwise feels well. Plan - Discontinue Ceftazidime, restart Ceftriaxone - Spiked fever today, if continues to spike, will obtain CT abdomen/pelvis with contrast to evaluate for possible abscess - Urine cultures growing dang-sensitive E.coli, follow up remaining cultures - Warm compresses to left hand - Motrin 400mg q8h for superficial thrombophlebitis of left hand - Continue current medications - DVT PPx
[2016-10-04 08:49] LABS: ABSOLUTE BASOPHIL COUNT 0 /CUMM (0.0-0.2); ABSOLUTE EOSINOPHIL COUNT 0.2 /CUMM (0.0-0.7); ABSOLUTE GRANULOCYTE CT 6.3 /CUMM (1.4-6.5); ABSOLUTE MONOCYTE COUNT 1.1 /CUMM (0.10-0.60); BASOPHIL % 0.2 % (0.0-2.0); EOSINOPHIL % 2.7 % (0-5); GRANULOCYTE % 73.5 % (42.2-75.2); HEMATOCRIT 28.5 % (37-47); MEAN CORPUSCULAR HGB 30.7 PG (27.0-31.0); MEAN CORPUSCULAR HGB CONC 32.6 G/DL (33.0-37.0); MEAN CORPUSCULAR VOLUME 94.2 FL (81.0-99.0); MEAN PLATELET VOLUME 9.2 FL (7.4-10.4); PLATELET COUNT 291 /CUMM (130-400); RED BLOOD CELL CT 3.02 /CUMM (4.20-5.40); WHITE BLOOD CELL COUNT 8.6 /CUMM (4.8-10.8)
[2016-10-04 15:40] VITALS: BP 120/78
[2016-10-04 22:46] VITALS: BP 124/66
--- NOTE | 2016-10-05 06:01 | PN- Housestaff ---
See Addendum Subjective Follow-up For: Urosepsis Subjective: Ms Case was seen and examined this morning. She reports improvement in her symptoms over night. Patient does state that she continues to endorse right -sided hand pain located in the dorsal surface. Pain is rated 8 out of 10 in severity. Worse with movement. Patient denies any fever overnight, chills, nausea, vomiting. She denies any dysuria, hesitation, urinary frequency or foul -smelling urine. Patient's was at the bedside. Review of Systems Constitutional: Reports: see HPI. Objective Last 24 Hrs of Vital Signs/I&O Vital Signs Date Time Temp Pulse Resp B/P Pulse O2 O2 Flow FiO2 Ox Delivery Rate 10/05 0707 99.6 90 20 128/76 95 Room Air 10/04 2246 98.2 66 22 124/66 95 Room Air 10/04 1540 98.8 79 20 120/78 95 10/04 1018 101.5 10/04 0929 Room Air Room Air Intake & Output 10/05 1600 10/05 0800 10/05 0000 Intake Total 150 350 Output Total 300 150 Balance -150 200 Intake, Oral 150 350 Number 0 Bowel Movements Output, Urine 300 150 Physical Exam General Appearance: Alert, Oriented X3, Cooperative Cardiovascular: Regular Rate, Normal S1, Normal S2 Lungs: Clear to Auscultation, Normal Air Movement Abdomen: Normal Bowel Sounds, Soft, No Tenderness Neurological: Normal Speech Extremities: No Clubbing, No Cyanosis, No Edema, Left Dorsal Hand. Tender to light touch. Decreased ROM. Pain worse with flexion. Current Medications: Current Medications Sig/Saira Start time Last Medication Dose Route Stop Time Status Admin Acetaminophen 650 MG .STK-MED ONE 10/04 1008 DC PO 10/04 1009 Acetaminophen 650 MG Q6P PRN 10/02 1730 AC 10/04 PO 1018 Albuterol Sulfate 2 PUF Q4-6 PRN PRN 10/02 1745 AC INH Apixaban 5 MG BID 10/02 2200 AC 10/04 PO 2114 Bisacodyl 10 MG DAILY NEEDED PRN 10/05 0745 AC TX Ceftazidime 2,000 MG IQ8 10/03 1600 DC 10/04 IV 1019 Ceftriaxone Sodium 1,000 MG DAILY 10/04 1228 AC 10/04 IV 1448 Diltiazem HCl 120 MG DAILY 10/03 1000 AC 10/04 PO 1018 Docusate Sodium 100 MG BID 10/03 1000 AC 10/04 PO 2113 Furosemide 20 MG DAILY 10/03 1000 AC 10/04 PO 1018 Ibuprofen 400 MG Q8 10/05 1400 UNVr PO Ibuprofen 400 MG Q6P PRN 10/05 0800 DC PO Ibuprofen 400 MG ONCE ONE 10/04 1600 DC 10/04 PO 10/04 1601 1617 Ibuprofen 400 MG Q8P PRN 10/04 1530 DC PO Lorazepam 0.5 MG BID PRN 10/02 1745 AC 10/03 PO 10/09 1744 1143 Magnesium Hydroxide 30 ML ONE ONE 10/04 1230 DC 10/04 PO 10/04 1231 1450 Omeprazole 40 MG DAILY AC 10/03 0700 AC 10/05 PO 0533 Oxycodone HCl 20 MG BID 10/02 2200 AC 10/04 PO 211 Oxycodone HCl 5 MG Q4 HRS NEEDED PRN 10/02 1745 AC 10/04 PO 0615 Polyethylene Glycol 17 GM DAILY 10/03 1000 AC 10/04 PO 1018 Potassium Chloride 40 MEQ ONCE ONE 10/04 1115 DC 10/04 PO 10/04 1116 1448 Sertraline HCl 50 MG AT BEDTIME 10/03 2200 AC 10/04 PO 211 Zolpidem Tartrate 5 MG QPM 10/02 2200 AC 10/04 PO 2115 Assessment/Plan Assessment: Ms Case is a 71-year-old woman with past medical history of multiple myeloma, hypertension and chronic back pain who presented to the emergency department following generalized weakness status post recently been discharged from short term rehabilitation. Urosepsis. On admission the patient did have an elevated white count of 11.3. This is subsequently come down to 8.7. She did have a evidence of a dirty urine and was started on ceftriaxone. The patient continued to be febrile. she was put back on ceftriaxone to ceftazidime. IF she continued to produce fevers, consider CT abdomen and pelvis with contrast for ruling out abscess. Repeat blood cultures have been ordered. Urine cultures were positive for gram-negative rods--> Ecoli--> pansensitive Lasix 20 mg IV, 1 dose so far for dyspnea. Repeat flu swab has been negative. Owing to decreased mentation the patient was bolused 1 time 500 milliliters. Second visit to the patient after she received this bolus did reveal that the patient was feeling better. Following the recent administration of the IV Tylenol the fever did break.102.5-->98.7. Repeat chest x-ray ordered which showed no evidence of pneumonia or consolidation. A PA lateral x-ray was ordered showed no evidence of pneumonia or consolidation. Thrombophlebitis Symptoms appeared improved. Continue the patient with warm compresses. Continue Motrin for pain relief. Encourage movements and ambulation as tolerated. May consider repeating coagulation studies especially in light of recent multiple myeloma diagnosis. Decreased Mentation and UE tremors Was called to the patient's bedside by the family stating that they were worried about the patient having bilateral upper extremity tremors as well as decreased mentation. Initial exam were within normal limits limits. No neurological deficits were noted. Saturations were checked patient was saturating 93% on room air. General conditioning Patient was able to work with PT Psych consult as appears depressed, awaiting recomendations, likely can benefit from SSRI. Diet Heat healthy diet DVT prophylaxis Eliquis Code Full code Problem List: 1. Sepsis due to urinary tract infection 2. Dyspnea 3. Asthma 4. Hypertension Pain Ratin Pain Location: Right Hand Dorsal Surface Pain Goal: Remain pain free Pain Plan: Motrin Tomorrow's Labs & Rationales: NA
[2016-10-05 07:07] VITALS: BP 128/76
--- NOTE | 2016-10-05 12:00 | Cons- Psychiatry ---
Psychiatric Consult Date of Consult: 10/05/16 Reason for Consult: "going into depression" History of Present Illness: 71F ML from home 10/02/16 1307 with CC general weakness. Admitted for urosepsis (resolving), decreased mentation and UE tremors (WNL, per H&P) Recent back surgery in July,. The patient then transferred to an ECF/ rehab until 09/04/16, when she discharged home. She had been improving her ambulation, per her report. History of multiple myeloma, currently on maintenance therapy with Dr. Rodger Forman, oncologist. History of medical marijuana from Dr. Forman, last prescribed in April,. History of diazepam, 09/04/16, probably from the ECF, but patient does not remember it. She supposes that this might have been prescribed for her occasional anxiety. No PHx; denies PFHx. She did not know why she has been on Zoloft/sertraline, which she thinks Dr. Forman prescribed for her. Back surgery in July, Physical rehab until 09/04/16, but increased weakness at home since then. Family reports change in mentation, more confused at home before the hospital. Nursing reported today that the patient needed a lot of encouragement to begin her day today. Brief collateral with the patient's daughter, Kristan, visiting the patient today , confirms that the patient had confusion before admission, likely the result of urosepsis. She reports that the patient had not been taking the diazepam 5 mg very often, usually when she leaves the house for a chemotherapy appointment. I have called the patient's oncologist, Dr. Rodger Forman, , but unfortunately missed him. I will try him again in order to get his input on the current psychotropic med regimen, and to suggest some changes: 1. We understand that the patient is on diazepam for anxiety, per the daughter, but we wish to make sure that this is not being prescribed for muscle relaxation. * If it is for anxiety, it should be discontinued. Benzodiazepines should be avoided in the elderly, as it carries an increased risk of falls and fractures. * If it is being used as a muscle relaxant, we suggest that another agent be considered. 2. If Dr. Forman is comfortable with titrating an antidepressant. Sertraline/ Zoloft is a good choice for anxiety, and might have been titrated to an effective level, but unfortunately, the patient is currently hyponatremic, and I have discontinued this medication. Would he be willing to follow the patient for another agent, such as mirtazapine? Zoloft should be held until the source of the hyponatremia is found. I have asked pharmacy to review her medications for another source. If the Zoloft is suspected as the cause, then another agent, such as mirtazapine 7.5 mg PO at bedtime may be considered. In any event, Zoloft is usually taken at in the morning, not at night, and all SSRIs should be taken with food. Allergies: Coded Allergies: NO KNOWN ALLERGIES (03/01/12) Current Medications: Current Medications Sig/Saira Start time Last Medication Dose Route Stop Time Status Admin Acetaminophen 650 MG Q6P PRN 10/02 1730 AC 10/04 PO 1018 Albuterol Sulfate 2 PUF Q4-6 PRN PRN 10/02 1745 AC INH Amoxicillin/ 875 MG Q12 10/05 1030 AC 10/05 Clavulanate Potassium PO 1253 Apixaban 5 MG BID 10/02 2200 AC 10/05 PO 0950 Bisacodyl 10 MG DAILY NEEDED PRN 10/05 0745 AC 10/05 CT 0951 Ceftriaxone Sodium 1,000 MG DAILY 10/04 1228 DC 10/04 IV 1448 Diltiazem HCl 120 MG DAILY 10/03 1000 AC 10/05 PO 0948 Docusate Sodium 100 MG BID 10/03 1000 AC 10/05 PO 0948 Furosemide 20 MG DAILY 10/03 1000 AC 10/05 PO 0948 Ibuprofen 400 MG Q8 10/05 1400 AC 10/05 PO 1411 Ibuprofen 400 MG Q6P PRN 10/05 0800 DC PO Lorazepam 0.5 MG BID PRN 10/02 1745 AC 10/03 PO 10/09 1744 1143 Losartan Potassium 25 MG DAILY 10/06 1000 AC PO Omeprazole 40 MG DAILY AC 10/03 0700 AC 10/05 PO 0533 Oxycodone HCl 20 MG BID 10/02 2200 AC 10/05 PO 0949 Oxycodone HCl 5 MG Q4 HRS NEEDED PRN 10/02 1745 AC 10/04 PO 0615 Patient Medication 1 ED .STK-MED ONE 10/[address] [facility] ED 10/05 1418 Patient Medication 1 UNIT ONE NR 10/[address] [facility] ED 10/05 1630 Polyethylene Glycol 17 GM DAILY 10/03 1000 AC 10/05 PO 0949 Potassium Chloride 40 MEQ ONCE ONE 10/05 1030 DC 10/05 PO 10/05 1031 1252 Sertraline HCl 50 MG AT BEDTIME 10/03 2199 AC 10/04 PO 2112 Zolpidem Tartrate 5 MG QPM 10/02 2199 AC 10/04 PO 2115 Past History Past Medical History Neurological: NONE EENT: NONE Cardiovascular: hypertension Respiratory: NONE Gastrointestinal: NONE Hepatic: NONE Renal: NONE Musculoskeletal: NONE Psychiatric: NONE (Denies) Endocrine: NONE Blood Disorders: NONE, PE Cancer(s): MULTIPLE MYELOMA Past Surgical History Surgical History: LUMBAR SURGERY JULY 2016 Assessment/Plan Mental Status Mental Status Exam: A+OX4. Denies AVTH; presents no carlin delusions. Depression 3/10, anxiety 0/10; 10 is the worst. She reports that she sometimes has anxiety, especially when leaving the house. Denies helplessness, hopelessness and worthlessness. Geriatric Mood Scale 15 question screen has a score or 0/15 today, or no suggestion of depression. She feels that her depression will lift as soon as she is discharged from the hospital. "I'm a people person!" She denies any feelings of sadness, "It's the other way; I'm so grateful." Sleeps 8 hours with Ambien 5 mg; 6 hours without it. We discussed some of the drawbacks to this medication, and the patient does not wish to make a change to it at this time. She had tried melatonin in the past to poor effect. Denies SI/HI; denies history of suicide attempt. Denies any psychiatric diagnosis, hospitalization or treatment. She is not sure why she is on Zoloft, and antidepressant and Valium a hypnotic. The patient denies any history of panic events. She reports that her appetite is off in the hospital, but is normal at home. Insight into her condition is moderate to good; judgement is intact. She is unsure why she takes Valium and Zoloft. Lab Results: Laboratory Tests 10/04 0711 Chemistry Sodium (137 - 145 mmol/L) 135 L Potassium (3.5 - 5.1 mmol/L) 3.4 L Chloride (98 - 107 mmol/L) 100 Carbon Dioxide (22 - 30 mmol/L) 25 Anion Gap (5 - 16) 10 BUN (7 - 17 mg/dL) 9 Creatinine (0.5 - 1.0 mg/dL) 0.6 Estimated GFR (>60 ml/min) > 60 BUN/Creatinine Ratio (7 - 25 %) 15.0 Hematology CBC w Diff NO MAN DIFF REQ WBC (4.8 - 10.8 /CUMM) 8.6 RBC (4.20 - 5.40 /CUMM) 3.02 L Hgb (12.0 - 16.0 G/DL) 9.3 L Hct (37 - 47 %) 28.5 L MCV (81.0 - 99.0 FL) 94.2 MCH (27.0 - 31.0 PG) 30.7 RDW (11.5 - 14.5 %) 15.0 H Plt Count (130 - 400 /CUMM) 291 MPV (7.4 - 10.4 FL) 9.2 Gran % (42.2 - 75.2 %) 73.5 Lymphocytes % (20.5 - 51.1 %) 11.2 L Monocytes % (1.7 - 9.3 %) 12.4 H Eosinophils % (0 - 5 %) 2.7 Basophils % (0.0 - 2.0 %) 0.2 Absolute Granulocytes (1.4 - 6.5 /CUMM) 6.3 Absolute Lymphocytes (1.2 - 3.4 /CUMM) 1.0 L Absolute Monocytes (0.10 - 0.60 /CUMM) 1.1 H Absolute Eosinophils (0.0 - 0.7 /CUMM) 0.2 Absolute Basophils (0.0 - 0.2 /CUMM) 0 PUBS MCHC (33.0 - 37.0 G/DL) 32.6 L Diffential Diagnosis: Possible anxiety disorder NOS R/O depressive disorder NOS Impression: The patient very likely has some anxiety related to her oncology treatments. Other zhao, she is upbeat, future-oriented and goal-directed to continue improving her ambulation so that she can resume her normal high level of socialization. Sertraline/Zoloft is a good choice for anxiety treatment, but unfortunately may be causing her hyponatremia. Pharmacy is investigating. In the meantime, I have stopped this medication. I had a brief discussion with her about other appropriate agents, such as mirtazapine, which may be started at 7.5 mg PO at bedtime after review of risks/ benefits/side affects with the patient. The patient's use of diazepam is occasional, for anxiety, per her daughter, Kristan. This medication should be avoided, if possible, due to increased risk of fall and fracture in the elderly. I have offered her a chance to come to OPS for further evaluation of anxiety and depression; she will discuss this with her family. Provisional Treatment Plan: 1. I have discontinued sertraline/Zoloft, as it is likely contributing to the patient's hyponatremia. 2. The patient may be willing to start another medication, such as mirtazapine 7.5 mg PO at bedtime, which is less likely than SSRIs to cause hyponatremia, especially at lower doses. Please review the R/B/SE with her. 3. Avoid diazepam. 4. We expect to have a discussion of the patient's psychotropic meds with her prescriber, Dr. Forman. 5. Encourage the patient to make an appointment at Outpatient psychiatry. We will continue to follow along with you. Thank-you for asking us to participate in Hailey's care. Pascual Ku APRN, Pager [phone]
--- NOTE | 2016-10-05 14:01 | Discharge Summary ---
Visit Information Visit Dates Admission Date: 10/02/16 Discharge Date: 10/07/16 Hospital Course Course Attending Physician: NELSON LERNER MD Primary Care Physician: VALERIA MARR,[facility] Course: This is a 71-year-old lady with past history of provoked DVT in 2012 which required 6 months anticoagulation, hypertension, recent diagnosis of multiple myeloma in January 2016, recent back surgery in July 2016 with multi disc level noé and screw placement, now on anticoagulation because of her myeloma for DVT prophylaxis, recent IVC filter placement that presented to the emergency room with her family with a chief complaint of weakness and muscle aches and pains that have been going on for greater than 48 hours Vitals and admission: Blood pressure 36870, respiration 16, pulse 97, temperature 101.6, oxygen saturation 94% on room air. Labs an admission WBC 11.3, hemoglobin 11.4, hematocrit 34.3, platelets 247, sodium 135, potassium 4.2, BUN 11, creatinine 0.8, UA positive for WBC packed with many bacteria and large leukocyte esterase positive. EKG Results Rate 97, [place] 140, QRS 78, QTC 452 PVCs CXR Results IMPRESSION: Low lung volumes. No definite focal consolidation; however, evaluation is limited. Recommend follow-up PA and lateral radiographs when patient able. Hospital course 1. Sepsis secondary to urological origin: Patient was admitted to general medical floor and started on IV ceftriaxone pending cultures. CT of the thoracic of the lumbar and sacral spine were done and abscesses/ infected hardware or ruled out. Bui was placed to follow-up on urinary output which was later DC'd . Patient did spike temperature while she was on IV antibiotics. Urine culture came back positive for Escherichia coli which was pansensitive. She was transitioned to by mouth Augmentin to complete a total course of 14 days given that she presented with upper urinary tract infections symptoms. Later Augmentin gave her stomach upset so it was switched to PO Keflex. Patient remained afebrile and her white count normalized and remained stable. 2. Weakness secondary to urinary infection: Patient was evaluated by physical therapy recommended short-term rehabilitation. Next 3. Depression: Patient had complaints of going to depression. Psychiatry consult was obtained. Zoloft was initially held secondary to hyponatremia should be restarted upon discharge. She denied suicidal ideations or homicidal ideations while in the hospital. She will have to schedule a follow-up appointment at [facility] outpatient service when she is nearing the end of rehabilitation to follow-up with psychiatry. 4. History of multiple myeloma: Currently not on medications. She will follow- up with her regular doctor upon discharge 5. Hypertension: His continued on her home medications including losartan and Cardizem 6. Bilateral lower extremity pitting edema secondary to volume overload: She received 1 dose of IV Lasix followed by by mouth Lasix 7. History of DVT: On Eliquis which was continued Diet regular diet DVT Ppx Eliquis Full code Allergies: Coded Allergies: NO KNOWN ALLERGIES (03/01/12) Pertinent Lab Results: Laboratory Tests 10/07 10/06 0600 0903 Chemistry Sodium (137 - 145 mmol/L) 135 L 136 L Potassium (3.5 - 5.1 mmol/L) 4.4 3.8 Chloride (98 - 107 mmol/L) 102 102 Carbon Dioxide (22 - 30 mmol/L) 25 26 Anion Gap (5 - 16) 7 8 BUN (7 - 17 mg/dL) 7 9 Creatinine (0.5 - 1.0 mg/dL) 0.5 0.5 Estimated GFR (>60 ml/min) > 60 > 60 BUN/Creatinine Ratio (7 - 25 %) 14.0 18.0 Hematology CBC w Diff NO MAN DIFF REQ WBC (4.8 - 10.8 /CUMM) 5.2 RBC (4.20 - 5.40 /CUMM) 3.33 L Hgb (12.0 - 16.0 G/DL) 10.2 L Hct (37 - 47 %) 30.9 L MCV (81.0 - 99.0 FL) 92.9 MCH (27.0 - 31.0 PG) 30.5 RDW (11.5 - 14.5 %) 15.1 H Plt Count (130 - 400 /CUMM) 349 MPV (7.4 - 10.4 FL) 8.9 Gran % (42.2 - 75.2 %) 71.2 Lymphocytes % (20.5 - 51.1 %) 8.7 L Monocytes % (1.7 - 9.3 %) 9.2 Eosinophils % (0 - 5 %) 10.6 H Basophils % (0.0 - 2.0 %) 0.3 Absolute Granulocytes (1.4 - 6.5 /CUMM) 3.7 Absolute Lymphocytes (1.2 - 3.4 /CUMM) 0.5 L Absolute Monocytes (0.10 - 0.60 /CUMM) 0.5 Absolute Eosinophils (0.0 - 0.7 /CUMM) 0.6 Absolute Basophils (0.0 - 0.2 /CUMM) 0 PUBS MCHC (33.0 - 37.0 G/DL) 32.9 L Disposition Summary Disposition Principal Diagnosis: 1. Sepsis secondary due to surgical margin 2. Weakness secondary to sepsis Additional Diagnosis: 1. Hypertension 2. History of DVT 3. History of multiple sclerosis Discharge Disposition: sshort-term rehabilitation Discharge Instructions General Discharge Information Code Status: Full Code Patient's Diet: Regular diet Patient's Activity: As tolerated with physical therapy Follow-Up Instructions/Appts: 1. Follow-up with primary care physician in a week upon discharge 2. Please make an appointment at [facility] outpatient service for follow -up on psychiatry. 3. Follow-up with regular physician for multiple sclerosis 4. Please followup with Urologist, Dr. Melvin for your urinary issues. Medications at Discharge Discharge Medications: Stop taking the following medications: Valsartan/Hydrochlorothiazide (Diovan Hct 160-25 MG Tablet) 160 MG-25 MG TABLET ORAL DAILY Qty = 90 Continue taking these medications: Albuterol Sulfate (Proair Hfa) 90 MCG HFA.AER.AD 2 Puff Inhale through mouth EVERY 4-6 HOURS NEEDED as needed for BREATHING PROBLEMS Comments: NOT TAKEN IN HOSPITAL Oxycodone HCl (Oxycontin) 20 MG TAB.ER.12H 1 Tablet ORAL TWICE DAILY Qty = 60 Diltiazem HCl (Diltiazem 24HR ER) 120 MG CAP.ER.24H 1 Capsule ORAL DAILY Qty = 30 Comments: Last Taken: 10/07/16 Time: 1000 Furosemide (Furosemide) 20 MG TABLET 1 Tablet ORAL DAILY Qty = 90 Comments: Last Taken: 10/07/16 Time: 1000 Apixaban (Eliquis) 5 MG TABLET 1 Tablet ORAL TWICE DAILY Qty = 60 Comments: Last Taken: 10/07/16 Time: 1000 Pantoprazole Sodium (Pantoprazole Sodium) 40 MG TABLET.DR 1 Tablet ORAL DAILY Qty = 30 Comments: Last Taken: 10/07/16 Time: 0600 Oxycodone HCl (Oxycodone HCl) 5 MG TABLET 1 Tablet ORAL EVERY 4 HOURS NEEDED as needed for PAIN Qty = 120 Lenalidomide (Revlimid) 10 MG CAPSULE 1 Capsule ORAL DAILY Qty = 28 Comments: Last Taken: 10/06/16 Time: 1730 Zolpidem Tartrate (Zolpidem Tartrate) 5 MG TABLET 1 Tablet ORAL Every night Qty = 30 Comments: Last Taken: 10/06/16 Time: 2100 Polyethylene Glycol 3350 (Polyethylene Glycol 3350) 17 GRAM POWD.PACK 1 Packet ORAL DAILY Qty = 14 Comments: Last Taken: 10/06/16 Time: 1000 Sertraline HCl (Sertraline HCl) 50 MG TABLET 1 Tablet ORAL DAILY Qty = 30 Comments: Last Taken: 10/05/16 Time: 2100 Lidocaine HCl (Lidocaine) 5 % OINT...G. 1 Application On the skin THREE TIMES DAILY as needed for PAIN Qty = 35 Comments: NOT TAKEN IN HOSPITAL Lorazepam (Lorazepam) 0.5 MG TABLET 1 Tablet ORAL 2 x Daily as needed as needed for ANXIETY Qty = 60 Comments: NOT TAKEN IN HOSPITAL Start taking the following new medications: Losartan Potassium (Losartan Potassium) 25 MG TABLET 25 Milligram ORAL DAILY Days = 30 No Refills Tamsulosin HCl (Flomax) 0.4 MG CAP.ER.24H 1 Capsule ORAL DAILY Days = 7 No Refills Comments: Last Taken: 10/07/16 Time: 1400 Cephalexin (Keflex) 500 MG CAPSULE 1 Capsule ORAL THREE TIMES DAILY Days = 9 No Refills Copies To: VALERIA MARR,[facility]
[2016-10-05 15:35] VITALS: BP 122/70
--- NOTE | 2016-10-05 19:46 | Patient Discharge Instructions ---
Discharge Instructions General Discharge Information You were seen/treated for: UTI Watch for these problems: Fever, nausea, vomiting, chills, weakness, increased generalized edema. Palpitations. Chest pain. Shortness of breath. Pain from site. Detachment of the wound Vac. If you have any adverse reactions from any of the medications prescribed please inform your primary care physician and you may be required to come back to the emergency department. Thank you for allowing us to be part of your care. Special Instructions: Please follow up with Dr Mora in one week. Please inform Dr Mora about the medication changes we have made as soon as you get home. Please see Dr. Melvin soon after discharge for your urology follow-up, next week Diet Continue normal diet: Yes Activity Full Activity/No Limits: No Activity Self Limited: Yes (As Tolerated) Acute Coronary Syndrome Inclusion Criteria At DC or during hospital stay patient has or had the following: ACS DIAGNOSIS No Discharge Core Measures Meds if any: Prescribed or Continued at Discharge Meds if any: NOT Prescribed or Continued at Discharge Congestive Heart Failure Inclusion Criteria At DC or during hospital stay patient has or had the following: CHF DIAGNOSIS No Discharge Core Measures Meds if any: Prescribed or Continued at Discharge Meds if any: NOT Prescribed or Continued at Discharge Cerebrovascular accident Inclusion Criteria At DC or during hospital stay patient has or had the following: CVA/TIA Diagnosis No Discharge Core Measures Meds if any: Prescribed or Continued at Discharge Meds if any: NOT Prescribed or Continued at Discharge Venous thromboembolism Inclusion Criteria VTE Diagnosis No VTE Type NONE VTE Confirmed by (Test) NONE Discharge Core Measures - Per Current guidelines, there needs to be overlap - treatment for the first 5 days of Warfarin therapy. - If discharged on Warfarin prior to 5 days of - overlap therapy, the patient will need to be - assessed for post discharge needs including - *Post discharge parental anticoagulation - *Warfarin and/or parental anticoagulation education - *Follow up date to check INR post discharge At least 5 days overlap therapy as Inpatient No Meds if any: Prescribed or Continued at Discharge Note: Overlap Therapy is Warfarin and Anticoagulant Meds if any: NOT Prescribed or Continued at Discharge
[2016-10-05 22:58] VITALS: BP 140/82
[2016-10-06 06:54] VITALS: BP 130/78
--- NOTE | 2016-10-06 07:24 | PN- Housestaff ---
See Addendum Subjective Follow-up For: Urosepsis Subjective: Afebrile, no acute overnight events reported, laying on bed looks relaxed and comfortable. Patient denies current fever, chills, abdominal pain, or any urinary symptoms. She only concern is the antihypertensive medication as she used to take Valsartan/hydrochlorothiazide, and now we only given losartan. Review of Systems Constitutional: Denies: chills, fever, weakness. Cardiovascular: Reports: no symptoms. Respiratory: Reports: no symptoms. Gastrointestinal: Reports: no symptoms. Genitourinary: Reports: no symptoms. Musculoskeletal: Reports: back pain (chronic). Objective Last 24 Hrs of Vital Signs/I&O Vital Signs Date Time Temp Pulse Resp B/P Pulse O2 O2 Flow FiO2 Ox Delivery Rate 10/06 0654 97.8 80 18 130/78 97 Room Air 10/05 2258 98.2 78 20 140/82 98 Room Air 10/05 1535 98.4 75 20 122/70 95 Room Air 10/05 1406 Room Air Room Air 10/05 1355 Room Air Room Air Intake & Output 10/06 1600 10/06 0800 10/06 0000 Intake Total 240 440 Output Total 300 201 Balance -60 239 Intake, Oral 240 440 Output, Stool 1 Output, Urine 300 200 Physical Exam General Appearance: Alert, Oriented X3, Cooperative, No Acute Distress Skin: No Rashes HEENT: Atraumatic, PERRLA, EOMI, Mucous Membr. moist/pink Cardiovascular: Regular Rate, Normal S1, Normal S2, No Murmurs Lungs: Clear to Auscultation, Normal Air Movement Abdomen: Soft, No Tenderness Neurological: Normal Speech Extremities: No Clubbing, No Cyanosis, trace LE edema B/L Current Medications: Current Medications Sig/Saira Start time Last Medication Dose Route Stop Time Status Admin Acetaminophen 650 MG Q6P PRN 10/02 1730 AC 10/04 PO 1018 Albuterol Sulfate 2 PUF Q4-6 PRN PRN 10/02 1745 AC INH Amoxicillin/ 875 MG Q12 10/05 1030 AC 10/05 Clavulanate Potassium PO 2152 Apixaban 5 MG BID 10/02 2200 AC 10/05 PO 2152 Bisacodyl 10 MG DAILY NEEDED PRN 10/05 0745 AC 10/05 DC 0951 Ceftriaxone Sodium 1,000 MG DAILY 10/04 1228 DC 10/04 IV 1448 Diltiazem HCl 120 MG DAILY 10/03 1000 AC 10/05 PO 0948 Docusate Sodium 100 MG BID 10/03 1000 AC 10/05 PO 2152 Furosemide 20 MG DAILY 10/03 1000 AC 10/05 PO 0948 Ibuprofen 400 MG Q8 10/05 1400 AC 10/06 PO 0626 Lorazepam 0.5 MG BID PRN 10/02 1745 AC 10/03 PO 10/09 1744 1143 Losartan Potassium 25 MG DAILY 10/06 1000 AC PO Omeprazole 40 MG DAILY AC 10/03 0700 AC 10/06 PO 0626 Oxycodone HCl 20 MG BID 10/02 2200 AC 10/05 PO 2154 Oxycodone HCl 5 MG Q4 HRS NEEDED PRN 10/02 1745 AC 10/04 PO 0615 Patient Medication 1 ED .STK-MED ONE 10/05 1417 [place] Teaching ED 10/05 1418 Patient Medication 1 UNIT ONE NR 10/05 1030 [place] Teaching ED 10/05 1630 Polyethylene Glycol 17 GM DAILY 10/03 1000 AC 10/05 PO 0949 Potassium Chloride 40 MEQ ONCE ONE 10/05 1030 DC 10/05 PO 10/05 1031 1252 Sertraline HCl 50 MG AT BEDTIME 10/03 2200 DC 10/04 PO 2113 Zolpidem Tartrate 5 MG QPM 10/02 2200 AC 10/05 PO 2154 Assessment/Plan Assessment: Ms Case is a 71-year-old woman with past medical history of recently diagnosed multiple myeloma, hypertension and chronic back pain who presented to the emergency department following generalized weakness status post recently been discharged from short term rehabilitation. #Urosepsis. Patient presented with fever, elevated white blood cell, UA positive for UTI and positive for gram-negative rods (pansensitive Ecoli) * Patient was switched to Augmentin 875 mg every 12 by mouth #Thrombophlebitis Symptoms improved. * Continue the patient with warm compresses. * Continue Motrin for pain relief. * Encourage movements and ambulation as tolerated. #Hypertension Patient was taking Diovan Hcl (Valsartan/Hydrochlorothiazide) at home, she was also taking Lasix 20 mg. Her blood pressure is controlled with losartan 25 mg daily by mouth * Continue losartan 25 mg daily by mouth * We will continue furosemide 20 mg daily * We will discuss discharge antihypertensive medication #Multiple myeloma Patient had a history of back surgery, after which she developed a chronic back pain. * Continue OxyContin 20 mg twice a day by mouth * Continue oxycodone 5 mg every 4 when necessary by mouth Diet regular diet DVT Ppx Eliquis Full code Problem List: 1. Sepsis due to urinary tract infection 2. Hypertension Pain Ratin Pain Location: na Pain Goal: back Pain Plan: see A&P Tomorrow's Labs & Rationales: see A&P Code Full code Problem List: 1. Sepsis due to urinary tract infection 2. Hypertension Pain Ratin Pain Location: na Pain Goal: back Pain Plan: see A&P Tomorrow's Labs & Rationales: see A&P
[2016-10-06 09:24] LABS: ABSOLUTE BASOPHIL COUNT 0 /CUMM (0.0-0.2); ABSOLUTE EOSINOPHIL COUNT 0.6 /CUMM (0.0-0.7); ABSOLUTE GRANULOCYTE CT 3.7 /CUMM (1.4-6.5); ABSOLUTE LYMPH COUNT 0.5 /CUMM (1.2-3.4); ABSOLUTE MONOCYTE COUNT 0.5 /CUMM (0.10-0.60); BASOPHIL % 0.3 % (0.0-2.0); EOSINOPHIL % 10.6 % (0-5); GRANULOCYTE % 71.2 % (42.2-75.2); HEMATOCRIT 30.9 % (37-47); MEAN CORPUSCULAR HGB 30.5 PG (27.0-31.0); MEAN CORPUSCULAR HGB CONC 32.9 G/DL (33.0-37.0); MEAN CORPUSCULAR VOLUME 92.9 FL (81.0-99.0); MEAN PLATELET VOLUME 8.9 FL (7.4-10.4); PLATELET COUNT 349 /CUMM (130-400); RBC DISTRIBUTION WIDTH 15.1 % (11.5-14.5); RED BLOOD CELL CT 3.33 /CUMM (4.20-5.40); WHITE BLOOD CELL COUNT 5.2 /CUMM (4.8-10.8)
[2016-10-06 14:25] VITALS: BP 110/60
--- NOTE | 2016-10-06 17:44 | PN- Psychiatry ---
Assessment/Plan Impression: We had stopped the patient's sertraline/Zoloft 50 mg PO daily before last night' s dose, thinking that it might be contributing to her hyponatremia. * Serum sodium tiffani from 135 to 136 overnight off Zoloft. * Lab history shows in 2013, sodium of 136, 137, 136, 142, 141; not on Zoloft * Lab history shows in 2017, sodium of 135, 136, 135, 136; the patient has been on Zoloft for about 6 months If holding Zoloft for another night does not result in a larger increase in sodium, then we can probably restart this before discharge, as it is likely not contributing very much to her hyponatremia. Other possible treatments for anxiety can be discussed as an outpatient. The spouse was present today during my visit, and is supportive. He had suggested that the patient start Zoloft to help with her avolition and lethargy after her back surgery. I again offered the patient the opportunity to come to Outpatient Psychiatry for further evaluation of her anxiety, which she now agrees to. I gave her a card with our contact information on it. Since the patient is going to rehab after , the spouse and patient will call to make an appointment at [facility] when her discharge date is known, . Suggestion: 1. Continue to hold Zoloft overnight. We may suggest restart pending review of Wednesday morning serum sodium result. 2. Please order serum sodium for 10/07/16 morning. 3. Avoid diazepam and other benzodiazepines 4. The patient will call to make an appointment at [facility] when she is nearing the end of her rehab. We will continue to follow along with you. Yamini Ku APRN, Pager [phone] Subjective Subjective: A+OX4. Denies AVH; presents no carlin delusions Denies SI/HI Denies current depression and anxiety symptoms Objective Last 24 Hrs of Vital Signs/I&O Vital Signs Date Time Temp Pulse Resp B/P Pulse O2 O2 Flow FiO2 Ox Delivery Rate 10/06 1425 97.8 80 18 110/60 97 10/06 1001 84 140/86 10/06 0654 97.8 80 18 130/78 97 Room Air 10/05 2258 98.2 78 20 140/82 98 Room Air Intake & Output 10/06 1600 10/06 0800 03/14 0000 Intake Total 500 240 440 Output Total 300 300 201 Balance 200 -60 239 Intake, Oral 500 240 440 Output, Stool 1 Output, Urine 300 300 200
[2016-10-06 22:11] VITALS: BP 125/72
[2016-10-07 07:21] VITALS: BP 112/64
--- NOTE | 2016-10-07 08:26 | PN- Housestaff ---
[facility] 10/07/16 0826: Subjective Follow-up For: Urosepsis Subjective: Afebrile, no acute overnight events reported, laying on bed looks relaxed and comfortable. Patient denies current fever, chills, abdominal pain, or any urinary symptoms. Review of Systems Constitutional: Reports: no symptoms, see HPI. Denies: chills, fever. Objective Last 24 Hrs of Vital Signs/I&O Vital Signs Date Time Temp Pulse Resp B/P Pulse O2 O2 Flow FiO2 Ox Delivery Rate 10/07 1600 97.2 72 20 120/68 10/07 1128 120/68 10/07 0721 97.2 72 20 112/64 97 Room Air 10/06 2211 98.7 80 20 125/72 98 Intake & Output 10/07 1600 10/07 0800 10/07 0000 Intake Total 350 200 Output Total 252 725 100 Balance -252 -375 100 Intake, IV 0 0 Intake, Oral 350 200 Number 0 1 Bowel Movements Output, Stool 2 Output, Urine 250 725 100 Physical Exam General Appearance: Alert, Oriented X3, Cooperative, No Acute Distress Skin: No Rashes HEENT: Atraumatic, PERRLA, EOMI, Mucous Membr. moist/pink Cardiovascular: Regular Rate, Normal S1, Normal S2, No Murmurs Lungs: Clear to Auscultation, Normal Air Movement Abdomen: Soft, No Tenderness Neurological: Normal Speech Extremities: No Cyanosis, trace edema bilaterally Current Medications: Current Medications Sig/Saira Start time Last Medication Dose Route Stop Time Status Admin Acetaminophen 650 MG Q6P PRN 10/02 1730 AC 10/04 PO 1018 Albuterol Sulfate 2 PUF Q4-6 PRN PRN 10/02 1745 AC INH Amoxicillin/ 875 MG Q12 10/05 1030 AC 10/07 [place]ate [place] PO 1128 Apixaban 5 MG BID 10/02 2200 AC 10/07 PO 1128 Bisacodyl 10 MG DAILY NEEDED PRN 10/05 0745 AC 10/05 VT 0951 Diltiazem HCl 120 MG DAILY 10/03 1000 AC 10/07 PO 1128 Docusate Sodium 100 MG BID 10/03 1000 AC 10/06 PO 2120 Furosemide 20 MG DAILY 10/03 1000 AC 10/07 PO 1128 Ibuprofen 400 MG Q8 10/05 1400 AC 10/07 PO 1408 Lorazepam 0.5 MG BID PRN 10/02 1745 AC 10/03 PO 10/09 1744 1143 Losartan Potassium 25 MG DAILY 10/06 1000 AC 10/07 PO 1128 Omeprazole 40 MG DAILY AC 10/03 0700 AC 10/07 PO 0556 Ondansetron HCl 4 MG .STK-MED ONE 10/07 1656 DC PO 10/07 1657 Ondansetron HCl 4 MG ONCE ONE 10/07 1345 DC 10/07 PO 10/07 1346 1342 Oxycodone HCl 20 MG BID 10/02 2200 AC 10/07 PO 1127 Oxycodone HCl 5 MG Q4 HRS NEEDED PRN 10/02 1745 AC 10/04 PO 0615 Polyethylene Glycol 17 GM DAILY 10/03 1000 AC 10/06 PO 0958 Tamsulosin HCl 0.4 MG DAILY 10/07 1205 AC 10/07 PO 1408 Zolpidem Tartrate 5 MG QPM 10/02 2200 AC 10/06 PO 2120 Last 24 Hrs of Lab/Robin Results Last 24 Hrs of Labs/Mics: Laboratory Tests 10/07/16 0600: Anion Gap 7, Estimated GFR > 60, BUN/Creatinine Ratio 14.0 Assessment/Plan Assessment: Ms Case is a 71-year-old woman with past medical history of recently diagnosed multiple myeloma, hypertension and chronic back pain who presented to the emergency department following generalized weakness status post recently been discharged from short term rehabilitation. #Urosepsis. Patient presented with fever, elevated white blood cell, UA positive for UTI and positive for gram-negative rods (pansensitive Ecoli). * Patient will be switched to Keflex 500 3 times a day as she is complaining of nausea when she take amoxicillin. * Patient is safe to be discharged today to a short-term rehabilitation * Patient will be advised to follow with urology as an outpatient * We will give Flomax for mild urinary retention until she sees her primary care doctor #Hypertension Patient was taking Diovan Hcl (Valsartan/Hydrochlorothiazide) at home, she was also taking Lasix 20 mg. Her blood pressure is controlled with losartan 25 mg daily by mouth * She will be discharged today and instructed to take losartan and Lasix * She will be instructed to avoid Diovan Hcl until she see her primary care doctor #Multiple myeloma Patient had a history of back surgery, after which she developed a chronic back pain. * Continue OxyContin 20 mg twice a day by mouth * Continue oxycodone 5 mg every 4 when necessary by mouth Diet regular diet DVT Ppx Eliquis Full code Problem List: 1. Sepsis due to urinary tract infection 2. Hypertension Pain Ratin Pain Location: na Pain Goal: Remain pain free Pain Plan: See assessment and plan Tomorrow's Labs & Rationales: See assessment and plan NELSON LERNER MD 10/07/16 1355: Attending MD Review Statement Attending Statement Attending MD Statement: examined this patient, discuss w/resident/PA/BASKET PERSON, agreed w/resident/PA/BASKET PERSON, reviewed EMR data (avail), discussed with nursing, discussed with case mgmt, amended to note Attending Assessment/Plan: patient seen and examined, feels overall better. Still has some difficulty in urinating and requiring straight cath. She has been switched to oral abx. I will add short term Flomax, continue staright cath protocol and follow up with Urology Dr. Melvin as out patient. patient has a bed available at [facility] today and will be discharged today.
[2016-10-07] MEDS ORDERED: AMOX-CLAV 875-1 EACH PO (12:49)
[2016-10-07] MEDS ORDERED: LOSARTAN POTASS25 M1 PO (12:49)
[2016-10-07] MEDS ORDERED: FLOMAX0.4 M1 PO (12:59)
[2016-10-07] MEDS ORDERED: KEFLEX500 M1 PO (13:43)
[2016-10-07 16:00] VITALS: BP 120/68
== END 2016-10-07 17:24 | DRG 871 ==
LOC: ENRESERVDT → CANRESERV → ENRESERVTM → ERH 12:53 → 2NA 16:24 → ENPENDDIS 16:24 → ERHI 16:24 → 2NA 20:51
PROVIDERS: Internal Medicine; Physician Assistant; Student in an Organized Health Care Education/Training Program; ADMIT Internal Medicine
DX: A41.9 Sepsis, unspecified organism (principal); G93.40 Encephalopathy, unspecified; N39.0 Urinary tract infection, site not specified; C90.00 Multiple myeloma not having achieved remission; I10 Essential (primary) hypertension; F32.9 Major depressive disorder, single episode, unspecified
CPT/HCPCS: 2NAP; 36415; 81001; 82436; 87040; 87070; 87086; 87804; 87804-59; 93005; 93010; 97110-GO; 97116-GO; 97161-GP; 97530-GO; 99232; 99233; J0131; J0696; J0713; J1940; J3101; J3490; J7040

== ENCOUNTER 2017-10-26 18:00 | Observation (INO) | payer OTHER, MEDICARE ==
[~2017-10-26] VITALS: Ht 154.9 cm; Wt 72.6 kg
[~2017-10-26 18:00] MED LIST changes: +AMOX-CLAV 875-1 EACH PO; +DILTIAZEM 24HR120 MG PO; +DIOVAN HCT 1601 EAC1 PO; +ELIQUIS5 M1 PO; +FLOMAX0.4 M1 PO; +FUROSEMIDE20 M1 PO; +KEFLEX500 M1 PO; +LIDOCAINE35.44 GM TOP; +LORAZEPAM0.5 M1 PO; +LOSARTAN POTASS25 M1 PO; +OXYCODONE HCL5 M1 PO; +OXYCONTIN20 M1 PO; +PANTOPRAZOLE SO40 M1 PO; +POLYETHYLENE GL17 GM PO; +REVLIMID10 M1 PO; +SERTRALINE HCL50 MG PO; +ZOLPIDEM TARTRAT5 M1 PO
[2017-10-26 18:38] LABS: ABSOLUTE BASOPHIL COUNT 0 /CUMM (0.0-0.2); ABSOLUTE EOSINOPHIL COUNT 0 /CUMM (0.0-0.7); ABSOLUTE GRANULOCYTE CT 8.7 /CUMM (1.4-6.5); ABSOLUTE LYMPH COUNT 1.7 /CUMM (1.2-3.4); ABSOLUTE MONOCYTE COUNT 0.5 /CUMM (0.10-0.60); BASOPHIL % 0.3 % (0.0-2.0); EOSINOPHIL % 0 % (0-5); GRANULOCYTE % 79.6 % (42.2-75.2); HEMATOCRIT 44.4 % (37-47); MEAN CORPUSCULAR HGB 31.1 PG (27.0-31.0); MEAN CORPUSCULAR HGB CONC 33.4 G/DL (33.0-37.0); MEAN CORPUSCULAR VOLUME 93.1 FL (81.0-99.0); MEAN PLATELET VOLUME 8.6 FL (7.4-10.4); PLATELET COUNT 303 /CUMM (130-400); RBC DISTRIBUTION WIDTH 14.4 % (11.5-14.5); RED BLOOD CELL CT 4.78 /CUMM (4.20-5.40)
[2017-10-26 18:54] LABS: PT 11.4 SEC (9.4-12.5); PTT 30 SEC (25-37)
--- NOTE | 2017-10-26 19:02 | RADIOLOGY REPORT ---
EXAMINATION: XR CHEST CLINICAL INFORMATION: Chest pain and shortness of breath. COMPARISON: Chest x-ray from 10/03/2016. TECHNIQUE: 2 views of the chest were obtained. FINDINGS: The cardiomediastinal silhouette is normal. No airspace opacities or pleural effusions are seen. No acute osseous abnormality is evident. Posterior spinal fusion hardware partially visualized in the lower thoracic and upper lumbar spine. IMPRESSION: No acute cardiopulmonary process.
--- NOTE | 2017-10-26 19:09 | CT SCAN REPORT ---
EXAMINATION: CT HEAD WITHOUT CONTRAST CLINICAL INFORMATION: Dizziness. COMPARISON: None TECHNIQUE: Contiguous axial imaging was performed from the skull base to vertex without intravenous administration of contrast. DLP: 614.4 mGy-cm FINDINGS: There is no evidence of acute intracranial hemorrhage or territorial infarction. No abnormal mass effect or midline shift is seen. Sinclair to white matter differentiation is well preserved. No extra-axial fluid collections are identified. Generalized parenchymal volume loss noted. The ventricles are normal in size. There is no abnormal attenuation within the brain parenchyma. The osseous structures and soft tissues are normal. The mastoid air cells and visualized portions of the paranasal sinuses are well aerated. IMPRESSION: No acute intracranial pathology.
--- NOTE | 2017-10-26 20:11 | ED CARDIAC/CP/PALPITATIONS ---
History of Present Illness General Chief Complaint: Chest Pain Stated Complaint: CP, DIAPHORESIS,DIZZINESS [id number] AGO Source: patient Exam Limitations: no limitations Vital Signs & Intake/Output Vital Signs & Intake/Output Vital Signs Date Time Temp Pulse Resp B/P B/P Pulse O2 O2 Flow FiO2 Mean Ox Delivery Rate 10/26 2028 Room Air 10/266 97.3 96 18 169/88 97 Room Air Allergies Coded Allergies: NO KNOWN ALLERGIES (03/01/12) Reconcile Medications Albuterol Sulfate (Proair Hfa) 90 MCG HFA.AER.AD 2 PUF INH Q4-6 PRN PRN BREATHING PROBLEMS (Reported) Apixaban (Eliquis) 5 MG TABLET 1 TAB PO BID BLOOD THINNER (Reported) Cephalexin (Keflex) 500 MG CAPSULE 1 CAP PO TID urin infection Diltiazem HCl (Diltiazem 24HR ER) 120 MG CAP.ER.24H 1 CAP PO DAILY HEART ( Reported) Furosemide 20 MG TABLET 1 TAB PO DAILY WATER PILL (Reported) Lenalidomide (Revlimid) 10 MG CAPSULE 1 CAP PO DAILY UNKNOWN (Reported) Lidocaine HCl (Lidocaine) 5 % OINT...G. 1 SHASHI TOP TID PRN PAIN (Reported) Lorazepam 0.5 MG TABLET 1 TAB PO BIDP PRN ANXIETY (Reported) Losartan Potassium 25 MG TABLET 25 MG PO DAILY high blood pressure Oxycodone HCl (Oxycontin) 20 MG TAB.ER.12H 1 TAB PO BID PAIN (Reported) Oxycodone HCl 5 MG TABLET 1 TAB PO Q4 HRS NEEDED PRN PAIN (Reported) Pantoprazole Sodium 40 MG TABLET.DR 1 TAB PO DAILY GI (Reported) Polyethylene Glycol 3350 17 GRAM POWD.PACK 1 PAC PO DAILY LAXATIVE, CONSTIPATION (Reported) Sertraline HCl 50 MG TABLET 1 TAB PO DAILY MENTAL HEALTH (Reported) Tamsulosin HCl (Flomax) 0.4 MG CAP.ER.24H 1 CAP PO DAILY urin retention Zolpidem Tartrate 5 MG TABLET 1 TAB PO QPM SLEEP (Reported) Triage Note: PT STATES SHE HAS BEEN FEELING DIZZY FOR THE PAST 4 DAYS. PT WAS PUT ON VENLAFAXINE HCL FOR HER MULTIPLE MYALOMA 15 DAYS AGO AND THINKS MAYBE THAT IS WHAT IS CAUSING HER TO FEEL SO BAD. PT STATE SHE HAD A PAIN IN HER CHEST THIS AFTERNOON AND TOOK ONE BABY ASA. PT REPORTS THE PAIN HAS RETURNED. PT DENIES SOB OR RADIATING PAIN. PT STATES SHE WAS A LITTLE FORGETFUL WHILE AT THERAPY Triage Nurses Notes Reviewed? yes Onset: Abrupt Duration: day(s): (4), changing over time, continues in ED, gone now Timing: single episode today Quality/Severity: moderate, pressure Location: substernal Radiation: no radiation Activities at Onset: activity Prior Chest Pain/Card Workup: pulmonary embolism Nitro Today/Relief: no nitro taken today Aspirin Today: no aspirin today Associated Symptoms: diaphoresis, dizziness, shortness of breath LMP (ages 10-50): unknown : No Patient currently breastfeeds: No HPI: 72-year-old female past medical history of pulmonary embolism, multiple myeloma, irregular heartbeat, hypertension, and asthma presents for evaluation of dizziness lightheadedness presyncope chest pain or shortness of breath. Patient states that she first noticed dizziness 4 days ago and it initially was intermittent. She states that she would feel dizziness when getting up in the middle night to use the bathroom or bending over. Today she went to physical therapy and was climbing on the physical therapy table when she suddenly felt very dizzy lightheaded diaphoretic and felt as if she was going to pass out. This was also associated with chest pain. The pain is located in the center of her chest and does not radiate. As pressure that was intermittent and sharp and associated with shortness of breath. No hemoptysis no lower extremity edema. The pain lasted for a couple hours before going away completely. Patient states that it did return again while she was in the emergency department lasted for about an hour and then went away again completely. Currently she is asymptomatic and feels well other than some mild dizziness with exertion. No slurred speech one-sided weakness fever. (Fabian Diaz) Past History Travel History Traveled to [place] past 21 day No Medical History Any Pertinent Medical History? see below for history Neurological: NONE EENT: NONE Cardiovascular: hypertension Respiratory: asthma Gastrointestinal: NONE Hepatic: NONE Renal: NONE Musculoskeletal: NONE Psychiatric: NONE (Denies) Endocrine: NONE Blood Disorders: NONE, PE Cancer(s): MULTIPLE MYELOMA History of MRSA: No History of VRE: No History of CDIFF: No Influenza Vaccine: 04/25/16 Surgical History Surgical History: LUMBAR SURGERY JULY 2016 Psychosocial History Who do you live with Spouse Services at Home None What is your primary language Upper Sorbian Tobacco Use: Never used ETOH Use: denies use Illicit Drug Use: denies illicit drug use Family History Family History, If Any: FATHER ([place]). Hx Contributory? No (Fabian Diaz) Review of Systems Review of Systems Constitutional: Reports: no symptoms. EENTM: Reports: no symptoms. Respiratory: Reports: see HPI, short of breath. Cardiovascular: Reports: see HPI, chest pain. GI: Reports: no symptoms. Genitourinary: Reports: no symptoms. Musculoskeletal: Reports: no symptoms. Skin: Reports: no symptoms. Neurological/Psychological: Reports: see HPI (DIZZY). Hematologic/Endocrine: Reports: no symptoms. Immunologic/Allergic: Reports: no symptoms. All Other Systems: Reviewed and Negative (Fabian Diaz) Physical Exam Physical Exam General Appearance: well developed/nourished, no apparent distress, alert, awake Head: atraumatic, normal appearance Eyes: Bilateral: normal appearance, PERRL, EOMI. Ears, Nose, Throat: normal pharynx, normal ENT inspection, hearing grossly normal Neck: normal inspection, supple, full range of motion Respiratory: normal breath sounds, chest non-tender, no respiratory distress, lungs clear Cardiovascular: regular rate/rhythm, normal peripheral pulses Peripheral Pulses: 2+ radial (R), 2+ radial (L) Gastrointestinal: soft, non-tender Back: normal inspection, normal range of motion, no vertebral tenderness Extremities: normal inspection, normal range of motion, no edema Neurologic/Psych: no motor/sensory deficits, awake, alert, oriented x 3, normal gait Skin: intact, normal color, warm/dry Lymphatic: no anterior cervical alexandre Core Measures ACS in differential dx? Yes CVA/TIA Diagnosis No Sepsis Present: No Sepsis Focused Exam Completed? No (Fabian Diaz) Progress Differential Diagnosis: AMI, atrial fibrillation, CHF/pulm edema, costochondritis, hyperkalemia, pancreatitis, pericarditis, pneumonia, PSVT, pulmonary embolism, PUD/GERD, PVCs/PACs, unstable angina Plan of Care: Orders Procedure Date/time Status Heart Healthy Diet 10/27 B Active TROPONIN LEVEL 10/26 2199 Active EKG 10/26 2199 Active Patient Data 10/26 2100 Active Intake & Output 10/26 2054 Active URINALYSIS 10/[address] in observation 10/26 2037 Active ED Holding Orders 10/26 2037 Active Vital Signs 10/26 2037 Active Code Status 10/26 2037 Active TROPONIN LEVEL 10/26 1825 Complete PARTIAL THROMBOPLASTIN TIME 10/26 1825 Complete PROTHROMBIN TIME 10/26 1825 Complete MAGNESIUM 10/26 1825 Complete D-DIMER 10/26 1825 Complete COMPREHENSIVE METABOLIC PANEL 10/26 1825 Complete CBC WITHOUT DIFFERENTIAL 10/26 1825 Complete EKG 10/27 1803 Active Laboratory Tests 10/26/172141: Troponin I Pending 10/26/172057: Urine Color STRAW, Urine Clarity CLEAR, Urine pH 6.5, Ur Specific [place] 1.010, Urine Protein NEG, Urine Ketones NEG, Urine Nitrite NEG, Urine Bilirubin NEG, Urine Urobilinogen 0.2, Ur Leukocyte Esterase NEG, Ur Microscopic EXAM NOT REQUIRED, Urine Hemoglobin NEG, Urine Glucose NEG 10/26/171830: Anion Gap 13, Estimated GFR > 60, BUN/Creatinine Ratio 40.0 H, Glucose 134 H, Calcium 10.5 H, Magnesium 1.9, Total Bilirubin 0.5, AST 22, ALT 24, Alkaline Phosphatase 86, Troponin I < 0.01, Total Protein 7.5, Albumin 4.5, Globulin 3.0, Albumin/Globulin Ratio 1.5, PT 11.4, INR 1.05, APTT 30, D-Dimer High Sensitivty < 200 10/26/171829: CBC w Diff NO MAN DIFF REQ, RBC 4.78, MCV 93.1, MCH 31.1 H, MCHC 33.4, RDW 14.4 , MPV 8.6, Gran % 79.6 H, Lymphocytes % 15.7 L, Monocytes % 4.4, Eosinophils % 0, Basophils % 0.3, Absolute Granulocytes 8.7 H, Absolute Lymphocytes 1.7, Absolute Monocytes 0.5, Absolute Eosinophils 0, Absolute Basophils 0 Patient seen and evaluated. She had an episode of presyncope associated with chest pain and shortness of breath while climbing onto a physical therapy table. This lasted for several hours before going away only to return again and then resolved again. Currently she is asymptomatic. EKG shows ventricular bigeminy negative troponin and negative d-dimer chest x-ray is clear. Due to patient's age, cardiac history and symptoms she will be admitted for observation for presyncope ventricular ectopy and chest pain. Require cardiology consult, telemetry, serial labs, serial EKGs, echocardiogram. This discussed with Dr. Carrington he agrees. Bharat Carrington DO spoke with hospitalist to admit to telemetry. Patient has seen Dr. Arredondo from cardiology many years ago. Diagnostic Imaging: Viewed by Me: CT Scan. Discussed w/RAD: CT Scan. Radiology Impression: ATIENT: MARGAUX COFFEY PRESENT AGE: 72 PATIENT ACCOUNT NO: [id number] : 43 LOCATION: ER ORDERING PHYSICIAN: Fabian VASQUEZ SERVICE DATE: 10/26/17 EXAM TYPE: CAT - CT HEAD WO IV CONTRAST EXAMINATION: CT HEAD WITHOUT CONTRAST CLINICAL INFORMATION: Dizziness. COMPARISON: None TECHNIQUE: Contiguous axial imaging was performed from the skull base to vertex without intravenous administration of contrast. DLP: 614.4 mGy-cm FINDINGS: There is no evidence of acute intracranial hemorrhage or territorial infarction. No abnormal mass effect or midline shift is seen. Sinclair to white matter differentiation is well preserved. No extra-axial fluid collections are identified. Generalized parenchymal volume loss noted. The ventricles are normal in size. There is no abnormal attenuation within the brain parenchyma. The osseous structures and soft tissues are normal. The mastoid air cells and visualized portions of the paranasal sinuses are well aerated. IMPRESSION: No acute intracranial pathology. DICTATED BY: Jonathan Hassan MD DATE/TIME DICTATED:10/26/171903 DIAMOND MOUNTER:ANNA DATE/TIME TRANSCRIBED:10/26/171903 CONFIDENTIAL, DO NOT COPY WITH CXR Impression: PATIENT: MARGAUX COFFEY PRESENT AGE: 72 PATIENT ACCOUNT NO: [id number] : 43 LOCATION: ER ORDERING PHYSICIAN: Fabian VASQUEZ SERVICE DATE: 10/26/17 EXAM TYPE: RAD - XRY- CHEST XRAY, TWO VIEWS EXAMINATION: XR CHEST CLINICAL INFORMATION: Chest pain and shortness of breath. COMPARISON: Chest x-ray from 10/03/2016. TECHNIQUE: 2 views of the chest were obtained. FINDINGS: The cardiomediastinal silhouette is normal. No airspace opacities or pleural effusions are seen. No acute osseous abnormality is evident. Posterior spinal fusion hardware partially visualized in the lower thoracic and upper lumbar spine. IMPRESSION: No acute cardiopulmonary process. DICTATED BY: Jonathan Hassan MD DATE/TIME DICTATED:10/26/171856 DIAMOND MOUNTER:ANNA DATE/TIME TRANSCRIBED:10/26/171856 CONFIDENTIAL, DO NOT COPY WITHOUT APPROPRIATE AUTHORIZATION. Initial ED EKG: SINUS TACH RATE 107, VENTRICULAR BIGEMENY, LEFT ATRIAL ABN (Fabian Diaz) Departure Departure Disposition: STILL A PATIENT Condition: Stable Clinical Impression Primary Impression: Pre-syncope Secondary Impressions: Chest pain Qualifiers: Chest pain type: unspecified Qualified Code: R07.9 - Chest pain, unspecified Ventricular ectopy Referrals: Virgilio Mora MD (PCP/Family) Departure Forms: Customer Survey General Discharge Information Observation Note Spoke With: Rashaad Freeman MD Physician Advisor Notified: BHARAT CARRINGTON DO Place Patient In: Non-ED OBS Care Area Rationale for Observation: My rational for observation is as follows [Require cardiology consult, telemetry , serial labs, serial EKGs, echocardiogram. ]. (Fabian Diaz) PA/MEDICAL INSTRUCTOR Co-Sign Statement Statement: ED Attending supervision documentation- [x] I saw and evaluated the patient. I have also reviewed all the pertinent lab results and diagnostic results. I agree with the findings and the plan of care as documented in the PA's/MEDICAL INSTRUCTOR's documentation. [x] I have reviewed the ED Record and agree with the PA's/MEDICAL INSTRUCTOR's documentation. [] Additions or exceptions (if any) to the PAs/MEDICAL INSTRUCTOR's note and plan are summarized below: [ I've seen and personally examined the patient and I agree with the PAs evaluation. Status post episode of chest pain that resolved. She does have ventricular ectopy on her cardiogram. History of pulmonary embolism.] (Bharat Carrington DO) Critical Care Note Critical Care Note Critical Care Time: non-applicable (Fabian Diaz)
--- NOTE | 2017-10-26 21:16 | History & Physical ---
General Information and HPI Allergies/Medications Allergies: Coded Allergies: NO KNOWN ALLERGIES (03/01/12) Home Med list Albuterol Sulfate (Proair Hfa) 90 MCG HFA.AER.AD 2 PUF INH Q4-6 PRN PRN BREATHING PROBLEMS (Reported) Apixaban (Eliquis) 5 MG TABLET 1 TAB PO BID BLOOD THINNER (Reported) Cephalexin (Keflex) 500 MG CAPSULE 1 CAP PO TID urin infection Diltiazem HCl (Diltiazem 24HR ER) 120 MG CAP.ER.24H 1 CAP PO DAILY HEART ( Reported) Furosemide 20 MG TABLET 1 TAB PO DAILY WATER PILL (Reported) Lenalidomide (Revlimid) 10 MG CAPSULE 1 CAP PO DAILY UNKNOWN (Reported) Lidocaine HCl (Lidocaine) 5 % OINT...G. 1 SHASHI TOP TID PRN PAIN (Reported) Lorazepam 0.5 MG TABLET 1 TAB PO BIDP PRN ANXIETY (Reported) Losartan Potassium 25 MG TABLET 25 MG PO DAILY high blood pressure Oxycodone HCl (Oxycontin) 20 MG TAB.ER.12H 1 TAB PO BID PAIN (Reported) Oxycodone HCl 5 MG TABLET 1 TAB PO Q4 HRS NEEDED PRN PAIN (Reported) Pantoprazole Sodium 40 MG TABLET.DR 1 TAB PO DAILY GI (Reported) Polyethylene Glycol 3350 17 GRAM POWD.PACK 1 PAC PO DAILY LAXATIVE, CONSTIPATION (Reported) Sertraline HCl 50 MG TABLET 1 TAB PO DAILY MENTAL HEALTH (Reported) Tamsulosin HCl (Flomax) 0.4 MG CAP.ER.24H 1 CAP PO DAILY urin retention Zolpidem Tartrate 5 MG TABLET 1 TAB PO QPM SLEEP (Reported) Past History Travel History Traveled to [place] past 21 day No Medical History Neurological: NONE EENT: NONE Cardiovascular: hypertension Respiratory: asthma Gastrointestinal: NONE Hepatic: NONE Renal: NONE Musculoskeletal: NONE Psychiatric: NONE (Denies) Endocrine: NONE Blood Disorders: NONE, PE Cancer(s): MULTIPLE MYELOMA History of MRSA: No History of VRE: No History of CDIFF: No Influenza Vaccine: 04/25/16 Surgical History Surgical History: LUMBAR SURGERY JULY 2016 Past Family/Social History Family History Relations & Conditions if any FATHER ([place]). Psychosocial History Services at Home: None ETOH Use: denies use Illicit Drug Use: denies illicit drug use
--- NOTE | 2017-10-26 23:59 | History & Physical ---
Rancho MARR,[facility] 10/26/17 5337: General Information and HPI MD Statement: I have seen and personally examined MARGAUX COFFEY and documented this H&P. The patient is a 72 year old F who presented with a patient stated chief complaint of [dizziness and palpitation for 3 days]. Source of Information: patient, family, old records Exam Limitations: no limitations History of Present Illness: 72-year-old female with PMH of HTN, asthma, multiple myeloma, TMJ pain, DVT in 2013 status post IVC filter and currently on Eliquis, PE, osteoporosis, urosepsis in 2017 who presented with a chief complaint of dizziness. Her symptoms started 3 days ago when she felt dizzy on the way to the bathroom, she reported multiple episodes of dizziness related to change in position. Earlier on the day of admission she had left-sided pleuritic chest pain that subsided after one dose of aspirin. Later during physical therapy for TMJ pain she had another episode of dizziness and left side chest pain for which she decided to visit the ED. 4 days ago she started taking zoipidem for sleep and 15 days ago Venilafaxin was added for neuropathic pain. She denies shortness breath, palpitation, cough, fever, weakness or numbness. Allergies/Medications Allergies: Coded Allergies: NO KNOWN ALLERGIES (03/01/12) Home Med list Albuterol Sulfate (Proair Hfa) 90 MCG HFA.AER.AD 2 PUF INH Q4-6 PRN PRN BREATHING PROBLEMS (Reported) Apixaban (Eliquis) 5 MG TABLET 1 TAB PO BID BLOOD THINNER (Reported) Tramadol HCl 50 MG TABLET 1 TAB PO TIDPRN PRN BACK PAIN (Reported) Valsartan/Hydrochlorothiazide (Valsartan-Hctz 160-25 MG Tab) 160 MG-25 MG TABLET 1 TAB PO DAILY DAILY (Reported) Venlafaxine HCl (Venlafaxine HCl ER) 37.5 MG CAP.ER.24H 1 CAP PO DAILY NERVE PAIN (Reported) Zolpidem Tartrate (Ambien) 5 MG TABLET 1 TAB PO QPMP SLEEP (Reported) Past History Travel History Traveled to [place] past 21 day No Medical History Neurological: NONE EENT: NONE Cardiovascular: hypertension Respiratory: asthma Gastrointestinal: NONE Hepatic: NONE Renal: NONE Musculoskeletal: NONE Psychiatric: NONE (Denies) Endocrine: NONE Blood Disorders: NONE, PE Cancer(s): MULTIPLE MYELOMA History of MRSA: No History of VRE: No History of CDIFF: No Influenza Vaccine: 04/25/16 Surgical History Surgical History: LUMBAR SURGERY JULY 2016 Past Family/Social History Family History Relations & Conditions if any FATHER ([place]). Psychosocial History Services at Home: None ETOH Use: denies use Illicit Drug Use: denies illicit drug use Review of Systems Review of Systems Constitutional: Denies: chills, diaphoresis, fever, malaise, weakness, unexplained weight loss. EENTM: Denies: visual changes, ear discharge, ear pain, hearing changes. Cardiovascular: Reports: chest pain. Denies: edema, orthopena, palpitations, peripheral edema, syncope. Respiratory: Denies: cough, orthopnea, short of breath, wheezing. GI: Denies: abdominal pain, constipation, nausea, vomiting. Genitourinary: Denies: dysuria, hematuria. Musculoskeletal: Denies: back pain. Skin: Denies: rash. Neurological/Psychological: Reports: headache. Denies: anxiety, ataxia, confusion, depressed, numbness. Exam & Diagnostic Data Last 24 Hrs of Vital Signs/I&O Vital Signs Date Time Temp Pulse Resp B/P B/P Pulse O2 O2 Flow FiO2 Mean Ox Delivery Rate 10/27 0023 98.0 64 18 141/94 98 Room Air 10/26 2028 Room Air 10/26 2000 97.2 83 20 154/79 98 Room Air 10/26 1826 97.3 96 18 169/88 97 Room Air Intake & Output 10/27 0800 10/27 0000 10/26 1600 Intake Total 240 Output Total Balance 240 Intake, Oral 240 Patient 72.575 kg 72.575 kg Weight Weight Reported by Patient Measurement Method Physical Exam General Appearance Alert, Oriented X3, Cooperative, No Acute Distress Skin No Rashes HEENT Atraumatic, PERRLA, EOMI, Mucous Membr. moist/pink, positive mar-hallpike test on the left side Neck Supple, No JVD Cardiovascular Normal S1, Normal S2, No Murmurs, irregular with PVCs on monitor Lungs Clear to Auscultation Abdomen Normal Bowel Sounds, Soft, No Tenderness Neurological Normal Speech, Strength at 5/5 X4 Ext, Cranial Nerves 3-12 NL Extremities No Clubbing, No Cyanosis, No Edema Last 24 Hrs of Labs/Robin: Laboratory Tests 10/27/17 0305: Anion Gap 11, Estimated GFR > 60, BUN/Creatinine Ratio 40.0 H, Calcium 9.7, Troponin I < 0.01, CBC w Diff NO MAN DIFF REQ, RBC 4.21, MCV 92.6, MCH 31.2 H, MCHC 33.7, RDW 14.4, MPV 8.9, Gran % 76.3 H, Lymphocytes % 17.1 L, Monocytes % 6.2, Eosinophils % 0.2, Basophils % 0.2, Absolute Granulocytes 7.0 H, Absolute Lymphocytes 1.6, Absolute Monocytes 0.6, Absolute Eosinophils 0, Absolute Basophils 0, ESR Westergren Pending 10/26/17 2142: Troponin I < 0.01 10/26/172057: Urine Color STRAW, Urine Clarity CLEAR, Urine pH 6.5, Ur Specific [place] 1.010, Urine Protein NEG, Urine Ketones NEG, Urine Nitrite NEG, Urine Bilirubin NEG, Urine Urobilinogen 0.2, Ur Leukocyte Esterase NEG, Ur Microscopic EXAM NOT REQUIRED, Urine Hemoglobin NEG, Urine Glucose NEG 10/26/17 183: Anion Gap 13, Estimated GFR > 60, BUN/Creatinine Ratio 40.0 H, Glucose 134 H, Calcium 10.5 H, Magnesium 1.9, Total Bilirubin 0.5, AST 22, ALT 24, Alkaline Phosphatase 86, Troponin I < 0.01, Total Protein 7.5, Albumin 4.5, Globulin 3.0, Albumin/Globulin Ratio 1.5, PT 11.4, INR 1.05, APTT 30, D-Dimer High Sensitivty < 200 10/26/17 1830: CBC w Diff NO MAN DIFF REQ, RBC 4.78, MCV 93.1, MCH 31.1 H, MCHC 33.4, RDW 14.4 , MPV 8.6, Gran % 79.6 H, Lymphocytes % 15.7 L, Monocytes % 4.4, Eosinophils % 0, Basophils % 0.3, Absolute Granulocytes 8.7 H, Absolute Lymphocytes 1.7, Absolute Monocytes 0.5, Absolute Eosinophils 0, Absolute Basophils 0 Assessment/Plan Assessment: 72-year-old female with multiple comorbidities who presented with intermittent dizziness and left-sided pleuritic chest pain. venlafaxine and zoipidem were recently added and may play a role in her dizziness. She is also taken valsartan-HCTZ with BUN/Cr ratio of 40 on admission for which orthostatic hypotension needs to be ruled out. She reported pleuritic chest pain however ACS and arrhythmias need to be ruled out. She has a positive Badger-Hallpike test on the left side which makes BPPV a possible diagnosis however doesn't explain her chest pain. The patient has a history of dysrhythmia 20 years ago, she did not follow with cardiology for a long time. The patient has a history of abnormal aortic and pulmonary valves on echocardiogram 2016. Problem list * Dizziness/presyncopal * Pleuritic chest pain * Hypertension * Asthma * Multiple myeloma with calcium being on the upper border of normal * Chronic back pain * TMJ syndrome * History of DVT/PE Plan * We'll admit to telemetry as an OBS * Rule out ACS with serial EKG and troponin * Repeat echocardiogram * We will continue ARBs but we will hold HCTZ * Hold Zolpidem and venlafaxine. * Check orthostatic hypotension * Given dizziness, headache and left jaw pain we will add ESR to rule out temporal arteritis. * May benefit from meclizine and Linnette maneuver if all other causes are excluded(?BPPV) * Continue Eliquis * Continue albuterol and flovent * Continue tramadol for back pain * Heart healthy diet * DVT prophylaxis with Alps and Eliquis. Of note: Patient has hypercalcemia most likely secondary to multiple myeloma, she may benefit from switching hydrochlorothiazide to a different medication given that it can exacerbate hypercalcemia. As Ranked By This Provider Problem List: 1. Chest pain Qualifiers Chest pain type: unspecified Qualified Code: R07.9 - Chest pain, unspecified 2. Pre-syncope 3. Hypertension 4. Ventricular ectopy Core Measures/Misc (04/11) Acute Coronary Syndrome ACS Diagnosis: No Congestive Heart Failure Congestive Heart Failure Diagnosis No Cerebrovascular Accident CVA/TIA Diagnosis: No VTE (View Protocol) VTE Risk Factors Age>40 No Mechanical VTE Prophylaxis d/t N/A MechProphylax Ordered No VTE Pharm Prophylaxis d/t NA PharmProphylax ordered Sepsis (View protocol) Sepsis Present: No Rashaad Freeman 10/27/17 0519: Attending MD Review Statement Attending Statement Attending MD Statement: examined this patient, discuss w/resident/PA/[employer], agreed w/resident/PA/[employer], discussed with family, reviewed EMR data (avail), reviewed images, amended to note Attending Assessment/Plan: CC: Dizziness, almost passing out PMH: History of DVT, S/P IVC filter and then removal, currently on anticoagulation, HTN, history of multiple myeloma S/P chemotherapy, back surgery July 2016, cervical spine surgery, asthma, osteoporosis on IV infusion medication every 3 month (she is not sure which medication), parathyroid surgery , multiple joint surgeries Patient came to ER for episode of almost passing out. She states that she has been feeling dizzy since last 3-4 days, since she started taking zolpidem. It was the first dose and she woke up in the middle of the night to go to bathroom when she felt very dizzy which resolved on its own. She did not take zolpidem the next day and still kept feeling dizzy episodes 1-2 times per day since last 3 days. During those episodes patient felt clammy, palpitations and felt like almost going to pass out. She took other [id number] sleeping aid for last 3 days which is different from her routine. She had an episode of left-sided chest pain today, occurred at rest, aching pain, worse with deep breathing, nonradiating, she took 1 tablet of aspirin and then felt better. Later she went for physical therapy for her TMJ joint at that time when she was made to lie down flat she felt dizzy again with palpitations, clammy, almost passing out then had another episode of chest pain does she came to ER. She denies any fever , chills, nausea, vomiting, diarrhea, abdominal pain, chronic cough or any new cough, no sputum production, no sick contacts, no short of breath, did not actually pass out. Other change of her medication is venlafaxine which was started 15 days back for her nerve pain, gabapentin was discontinued which did not help her much. She takes IV infusion for "bone strength" every 3 months. She stopped taking lenalidomide after the myeloma treatment. For pain control she is on tramadol. She is compliant with all her medications. Diovan was changed to Diovan HCTZ combination, for insurance issues the last 6 months, since then she has been urinating more than usual. Patient has history of arrhythmias 20-year- old back, was evaluated with Holter monitor, was getting palpitation at that time but never found out the cause. And it was resolved Vitals: Afebrile, pulse 96, RR 18, blood pressure 169/88, saturating 97% on room air. On exam: A O 3, cooperative, no acute distress, neck supple, JVD normal, no lymphadenopathy, mucosa moist, pupils equal reactive bilaterally, extraocular muscles intact, no nystagmus present, complete neurological examination unremarkable, no dependent edema, no obvious skin rashes or inflammation CVS: S1 -S2, irregular. RS: Clear to auscultate bilaterally. Abdomen: Soft, NT, ND, bowel sounds present. CT head without IV contrast: No acute intracranial pathology. CXR: No acute cardiopulmonary process Assessment and plan 72 year old female with extensive past medical history came to ER for dizziness episodes since last 3-4 days, 1 to 2 times per day, not related to exertion or at rest. She relates all the symptoms for starting zolpidem 4 days back, she took only one dose and then change to [id number] sleep aid. Today she also had associated chest pain with her presyncopal episode. She did not actually pass out, complete ROS unremarkable. Examination unremarkable. She is found to have multiple PACs and PVCs on ECG itch correlates to her irregular heart rate. Given her symptoms of presyncope she should be further evaluated for any arrhythmias and benefit observation on telemetry floor. At the same time side effects of zolpidem or antihistaminics is also possibility for her dizzy episodes. BPPV could be another possibility for dizziness if other causes are ruled out. Given her left-sided chest pain which was transient, 2 episodes today ACS should be ruled out. + Presyncope + Chest pain rule out ACS + History of History of DVT, S/P IVC filter and then removal, currently on anticoagulation, HTN, history of multiple myeloma S/P chemotherapy, back surgery July 2016, cervical spine surgery, asthma, osteoporosis on IV infusion medication every 3 month (she is not sure which medication), parathyroid surgery , multiple joint surgeries - Place in observation on telemetry - Continuous telemetry monitoring - Serial troponin and EKG - Orthostatic vitals - 2-D echocardiogram in a.m. - Cardiology consult - Hold venlafaxine, zolpidem, antihistaminic - Continue aspirin, atorvastatin, check lipid panel - Discontinue HCTZ (volume contraction and hypercalcemia), continue valsartan for now - Patient requires readjustment in her antihypertensives as was her tennis expensive for her and if she is requiring any rate controlled medication like beta douglas or calcium channel douglas which will also help in her blood pressure - Continue home doses of anticoagulation - Adequate pain control - Check ESR : Patient has pain secondary to TMJ but is sensitive for touch, on left side of the face
[2017-10-27] MEDS ORDERED: VENLAFAXINE H37.5 M4 PO (00:15)
[2017-10-27] MEDS ORDERED: AMBIEN5 M1 PO (00:15)
[2017-10-27] MEDS ORDERED: TRAMADOL HCL50 M1 PO (00:16)
[2017-10-27] MEDS ORDERED: VALSARTAN-HCTZ1 EAC2 PO (00:16)
[2017-10-27 03:11] LABS: ABSOLUTE BASOPHIL COUNT 0 /CUMM (0.0-0.2); ABSOLUTE EOSINOPHIL COUNT 0 /CUMM (0.0-0.7); BASOPHIL % 0.2 % (0.0-2.0); WHITE BLOOD CELL COUNT 9.2 /CUMM (4.8-10.8)
[2017-10-27 03:23] LABS: ABSOLUTE LYMPH COUNT 1.6 /CUMM (1.2-3.4); ABSOLUTE MONOCYTE COUNT 0.6 /CUMM (0.10-0.60); EOSINOPHIL % 0.2 % (0-5); GRANULOCYTE % 76.3 % (42.2-75.2); MEAN CORPUSCULAR HGB 31.2 PG (27.0-31.0); MEAN CORPUSCULAR HGB CONC 33.7 G/DL (33.0-37.0); MEAN CORPUSCULAR VOLUME 92.6 FL (81.0-99.0); MEAN PLATELET VOLUME 8.9 FL (7.4-10.4); PLATELET COUNT 268 /CUMM (130-400); RBC DISTRIBUTION WIDTH 14.4 % (11.5-14.5); RED BLOOD CELL CT 4.21 /CUMM (4.20-5.40)
[2017-10-27 03:24] LABS: HEMATOCRIT 38.9 % (37-47)
[2017-10-27 06:00] VITALS: BP 144/69
--- NOTE | 2017-10-27 07:46 | PN-Observation ---
Sweetie Mckeon MD,[facility] 10/27/17 0745: Observation Note Observation Note _ I have personally examined MARGAUX COFFEY. her disposition is uncertain at this time. Before a determination can be made, she requires continued observation for the following reasons [DIZZINESS, CP R/O ACS]. Assessment/Plan Medical Assessment: 72-year-old female with past medical history of pulmonary embolism status post IVC filter placement and then removal, currently on anticoagulation by oncologist to prevent thromboembolic events, multiple myeloma S/P chemotherapy, back surgery July 2016, cervical spine surgery, asthma, osteoporosis on IV infusion medication every 3 month (she is not sure which medication), parathyroid surgery, multiple joint surgeries came to emergency department for dizziness/lightheadedness and 2 episodes of chest pain. Vitals and emergency department, patient Afebrile, pulse 96, RR 18, blood pressure 169/88, saturating 97% on room air. On examination, patient alert, cooperative, no acute distress, neck supple, JVD normal, no lymphadenopathy, mucosa moist, pupils equal reactive bilaterally, extraocular muscles intact, no nystagmus present, complete neurological examination unremarkable, no dependent edema, no obvious skin rashes or inflammation CVS: S1-S2, irregular. RS: Clear to auscultate bilaterally. Abdomen: Soft, NT, ND, bowel sounds present. EKG in emergency department showed tachycardia, ventricle bigeminy, PVCs, heart rate of 110, no ST changes. Head CT was negative for intracranial pathology. Chest x-ray showed no cardiopulmonary findings. Patient was placed in observation for the management of following issues. Chest pain rule out ACS with previous history of arrhythmias Patient does not have typical presentation of chest pain but she is a female therefore atypical presentation should be kept in mind. Her EKG changes in emergency department did not show any acute ST changes but tachycardia with ventricular bigeminy was noticed. She does not have any cardiac history at baseline. She has history of hyperlipidemia and hypertension. Her risk for another coronary event is low given no EKG changes negative troponins. She is not currently complaining of any chest pain and remained symptom-free after hospitalization. Given previous history of arrhythmia and lower extremity edema , we will monitor her on telemetry floor and get an echocardiogram. Cardiology consult was placed. We will restart her blood pressure medications. Presyncope/BPPV Patient's episode of dizziness/presyncope are more consistent with benign positional vertigo. She describes these feelings as room spinning around her. Patient has Eloisa-Hallpike maneuver which is positive in emergency department. Physical therapy in the morning did vascular rehabilitation and Linnette's maneuver was performed. Patient feels 90% better after that maneuver. Patient will be given referral for vestibular rehabilitation. Patient was recently started on zolpidem venlafaxine and antihistamine. She attributed her dizziness/vertigo to these medications. We will restart these medications and see patient develops the symptoms during hospitalization because she's feeling better now after Linnette's maneuver. Chronic medical conditions including multiple myeloma, history of pulmonary embolism, back surgeries, neuropathy and asthma Will continue home medications Patient is full code Patient is on heart healthy diet Patient is on Eliquis for DVT prophylaxis Problem List: 1. Chest pain Qualifiers Chest pain type: unspecified Qualified Code: R07.9 - Chest pain, unspecified 2. Ventricular ectopy DVT/Prophylaxis: pharmacological Consulting Request: Consulting Specialty: Cardiology Subjective Follow-up For: Presyncope Chest pain rule out ACS History of pulmonary embolism History of multiple myeloma status post chemotherapy Complaints: no complaints Tele-Events Since Last Visit: Early during admission patient was tachycardic. Ventricular bigeminy noted. Subjective: she was comfortably sitting in the bed. No episodes of shortness of breath, chest pain, dizziness or lightheadedness overnight. She was able to walk to the restroom doubt any dizziness after Linnette's maneuver Review of Systems Constitutional: Denies: chills, fever. EENTM: Denies: visual changes. Cardiovascular: Denies: chest pain, palpitations. Respiratory: Denies: cough, short of breath. Gastrointestinal: Denies: abdominal pain, nausea, vomiting. Genitourinary: Denies: dysuria. Musculoskeletal: Denies: back pain. Objective Last 24 Hrs of Vital Signs/I&O Vital Signs Date Time Temp Pulse Resp B/P B/P Pulse O2 O2 Flow FiO2 Mean Ox Delivery Rate 10/27 0600 97.6 83 18 144/69 99 Room Air 10/27 0023 98.0 64 18 141/94 98 Room Air 10/26 2029 Room Air 10/26 2000 97.2 83 20 154/79 98 Room Air 10/26 1826 97.3 96 18 169/88 97 Room Air Intake & Output 10/27 1600 10/27 0800 10/27 0000 Intake Total 240 Output Total Balance 240 Intake, Oral 240 Patient 160 lb 160 lb Weight Weight Reported by Patient Measurement Method Physical Exam General Appearance: Alert, Oriented X3, Cooperative, No Acute Distress Skin: No Rashes HEENT: Atraumatic Neck: No JVD Cardiovascular: Regular Rate, Normal S1, Normal S2, No Murmurs Lungs: Clear to Auscultation, Normal Air Movement Abdomen: Normal Bowel Sounds, Soft, No Tenderness Neurological: Normal Speech, Normal Tone, Sensation Intact Extremities: No Cyanosis, No Edema Vascular: Normal Pulses Other Physical Findings: , Current Medications: Current Medications Sig/Saira Start time Last Medication Dose Route Stop Time Status Admin Albuterol Sulfate 2 PUF Q4-6 PRN PRN 10/27 0015 AC INH Apixaban 5 MG BID 10/27 0100 AC PO Aspirin 0 .STK-MED ONE 10/27 1023 DC PO Aspirin 81 MG DAILY 10/27 1000 AC PO Atorvastatin Calcium 80 MG 1700 10/27 1700 AC PO Losartan Potassium 50 MG DAILY 10/27 1000 AC PO Tramadol HCl 50 MG TIDPRN PRN 10/27 0045 AC PO Venlafaxine HCl 37.5 MG DAILY 10/27 1025 AC PO Zolpidem Tartrate 5 MG AT BEDTIME 10/27 2200 AC PO Last 24 Hrs of Labs/Mics: 1 likely Laboratory Tests 10/27/17 0305: Anion Gap 11, Estimated GFR > 60, BUN/Creatinine Ratio 40.0 H, Calcium 9.7, Troponin I < 0.01, TSH &T3 &Free T4 Intrp 1.170, CBC w Diff NO MAN DIFF REQ, RBC 4.21, MCV 92.6, MCH 31.2 H, MCHC 33.7, RDW 14.4, MPV 8.9, Gran % 76.3 H, Lymphocytes % 17.1 L, Monocytes % 6.2, Eosinophils % 0.2, Basophils % 0.2, Absolute Granulocytes 7.0 H, Absolute Lymphocytes 1.6, Absolute Monocytes 0.6, Absolute Eosinophils 0, Absolute Basophils 0, ESR Westergren 6 10/26/17 2142: Troponin I < 0.01 10/26/172057: Urine Color STRAW, Urine Clarity CLEAR, Urine pH 6.5, Ur Specific [place] 1.010, Urine Protein NEG, Urine Ketones NEG, Urine Nitrite NEG, Urine Bilirubin NEG, Urine Urobilinogen 0.2, Ur Leukocyte Esterase NEG, Ur Microscopic EXAM NOT REQUIRED, Urine Hemoglobin NEG, Urine Glucose NEG 10/26/17 1831: Anion Gap 13, Estimated GFR > 60, BUN/Creatinine Ratio 40.0 H, Glucose 134 H, Calcium 10.5 H, Magnesium 1.9, Total Bilirubin 0.5, AST 22, ALT 24, Alkaline Phosphatase 86, Troponin I < 0.01, Total Protein 7.5, Albumin 4.5, Globulin 3.0, Albumin/Globulin Ratio 1.5, PT 11.4, INR 1.05, APTT 30, D-Dimer High Sensitivty < 200 10/26/17 1830: CBC w Diff NO MAN DIFF REQ, RBC 4.78, MCV 93.1, MCH 31.1 H, MCHC 33.4, RDW 14.4 , MPV 8.6, Gran % 79.6 H, Lymphocytes % 15.7 L, Monocytes % 4.4, Eosinophils % 0, Basophils % 0.3, Absolute Granulocytes 8.7 H, Absolute Lymphocytes 1.7, Absolute Monocytes 0.5, Absolute Eosinophils 0, Absolute Basophils 0 Doug Rosas 10/27/17 1116: Attending Addendum Attending Brief Note Patient placed in obsevration status for presyncope likely BPPV. ECHO pending and cardiology consulted. Anticipate dc soon with PT referral. F/u O/p PCP in few days of discharge.
[2017-10-27 11:12] VITALS: BP 136/83
--- NOTE | 2017-10-27 13:51 | Cons- Cardiology ---
General Information and HPI Consulting Request Date of Consult: 10/27/17 Requested By: Doug Rosas MD Reason for Consult: Dizziness and chest discomfort Source of Information: patient, family Exam Limitations: no limitations History of Present Illness: The patient is a 72-year-old female who is known to me. She has a past history of hypertension, asthma, multiple myeloma, prior DVT in 2012, status post prophylactic IVC filter, subsequently removed post back surgery, currently on oral anticoagulation, etc. The patient presented to the hospital with complaints of dizziness. She also had a brief episodes of left-sided chest discomfort which appeared to be worse with inspiration. She denies any exertional symptoms. She does note that the dizziness was worse lying down and in certain positions. No other obvious cardiac symptoms noted. The chest discomfort appears to be atypical for cardiac symptoms. Allergies/Medications Allergies: Coded Allergies: NO KNOWN ALLERGIES (03/01/12) Home Med List: Albuterol Sulfate (Proair Hfa) 90 MCG HFA.AER.AD 2 PUF INH Q4-6 PRN PRN BREATHING PROBLEMS (Reported) Apixaban (Eliquis) 5 MG TABLET 1 TAB PO BID BLOOD THINNER (Reported) Tramadol HCl 50 MG TABLET 1 TAB PO TIDPRN PRN BACK PAIN (Reported) Valsartan/Hydrochlorothiazide (Valsartan-Hctz 160-25 MG Tab) 160 MG-25 MG TABLET 1 TAB PO DAILY DAILY (Reported) Venlafaxine HCl (Venlafaxine HCl ER) 37.5 MG CAP.ER.24H 1 CAP PO DAILY NERVE PAIN (Reported) Zolpidem Tartrate (Ambien) 5 MG TABLET 1 TAB PO QPMP SLEEP (Reported) Current Medications: Current Medications Sig/Saira Start time Last Medication Dose Route Stop Time Status Admin Albuterol Sulfate 2 PUF Q4-6 PRN PRN 10/27 0015 AC INH Apixaban 5 MG BID 10/27 0100 AC 10/27 PO 1059 Aspirin 0 .STK-MED ONE 10/27 1023 DC PO Aspirin 81 MG DAILY 10/27 1000 AC 10/27 PO 1058 Atorvastatin Calcium 80 MG 1700 10/27 1700 AC PO Losartan Potassium 50 MG DAILY 10/27 1000 AC 10/27 PO 1059 Tramadol HCl 50 MG TIDPRN PRN 10/27 0045 AC PO Venlafaxine HCl 37.5 MG DAILY 10/27 1025 AC 10/27 PO 1059 Zolpidem Tartrate 5 MG AT BEDTIME 10/27 2200 AC PO Past History Travel History Traveled to [place] past 21 day No Medical History Blood Transfusion Hx: No Neurological: NONE EENT: NONE Cardiovascular: hypertension Respiratory: asthma Gastrointestinal: NONE Hepatic: NONE Renal: NONE Musculoskeletal: NONE Psychiatric: NONE (Denies) Endocrine: NONE Blood Disorders: NONE, PE Cancer(s): MULTIPLE MYELOMA Surgical History Surgical History: LUMBAR SURGERY JULY 2016 Family History Relations & Conditions If Any: [place] ([place]). Psychosocial History Services at Home: None Smoking Status: Never Smoked ETOH Use: denies use Illicit Drug Use: denies illicit drug use Exam & Diagnostic Data Vital Signs and I&O Vital Signs Date Time Temp Pulse Resp B/P B/P Pulse O2 O2 Flow FiO2 Mean Ox Delivery Rate 10/27 1112 100 16 136/83 99 Room Air 10/27 1104 100 16 136/83 99 Room Air 10/27 1059 97.6 100 16 136/83 10/27 0600 97.6 83 18 144/69 99 Room Air 10/27 0023 98.0 64 18 141/94 98 Room Air 10/26 2029 Room Air 10/26 2000 97.2 83 20 154/79 98 Room Air 10/26 1826 97.3 96 18 169/88 97 Room Air Intake & Output 10/27 1600 10/27 0800 10/27 0000 10/26 1600 10/26 0800 10/26 0000 Intake Total 240 Output Total Balance 240 Intake, Oral 240 Patient 160 lb 160 lb Weight Weight Reported by Patient Measurement Method Physical Exam: General Appearance Alert, Oriented X3, Cooperative, No Acute Distress Skin normal HEENT Atraumatic, PERRLA, EOMI, Mucous Membr. moist/pink, positive mar-hallpike test on the left side Neck Supple, No JVD, carotid upstroke normal bilaterally Cardiovascular Normal S1, Normal S2, 1/6 systolic murmur Lungs Clear to Auscultation and percussion bilaterally Abdomen Normal Bowel Sounds, Soft, No Tenderness Neurological Normal/nonfocal Extremities No Clubbing, No Cyanosis, No Edema Labs/Robin Results: Laboratory Tests 10/27 10/26 0305 2142 Chemistry Sodium (137 - 145 mmol/L) 141 Potassium (3.5 - 5.1 mmol/L) 4.1 Chloride (98 - 107 mmol/L) 103 Carbon Dioxide (22 - 30 mmol/L) 28 Anion Gap (5 - 16) 11 BUN (7 - 17 mg/dL) 24 H Creatinine (0.5 - 1.0 mg/dL) 0.6 Estimated GFR (>60 ml/min) > 60 BUN/Creatinine Ratio (7 - 25 %) 40.0 H Calcium (8.4 - 10.2 mg/dL) 9.7 Troponin I (< 0.11 ng/ml) < 0.01 < 0.01 TSH &T3 &Free T4 Intrp (0.270 - 4.20 uIU/mL) 1.170 Hematology CBC w Diff NO MAN DIFF REQ WBC (4.8 - 10.8 /CUMM) 9.2 RBC (4.20 - 5.40 /CUMM) 4.21 Hgb (12.0 - 16.0 G/DL) 13.1 Hct (37 - 47 %) 38.9 MCV (81.0 - 99.0 FL) 92.6 MCH (27.0 - 31.0 PG) 31.2 H MCHC (33.0 - 37.0 G/DL) 33.7 RDW (11.5 - 14.5 %) 14.4 Plt Count (130 - 400 /CUMM) 268 MPV (7.4 - 10.4 FL) 8.9 Gran % (42.2 - 75.2 %) 76.3 H Lymphocytes % (20.5 - 51.1 %) 17.1 L Monocytes % (1.7 - 9.3 %) 6.2 Eosinophils % (0 - 5 %) 0.2 Basophils % (0.0 - 2.0 %) 0.2 Absolute Granulocytes (1.4 - 6.5 /CUMM) 7.0 H Absolute Lymphocytes (1.2 - 3.4 /CUMM) 1.6 Absolute Monocytes (0.10 - 0.60 /CUMM) 0.6 Absolute Eosinophils (0.0 - 0.7 /CUMM) 0 Absolute Basophils (0.0 - 0.2 /CUMM) 0 ESR Westergren (0 - 20 MM) 6 10/26 10/26 2058 1831 Chemistry Sodium (137 - 145 mmol/L) 140 Potassium (3.5 - 5.1 mmol/L) 4.2 Chloride (98 - 107 mmol/L) 100 Carbon Dioxide (22 - 30 mmol/L) 27 Anion Gap (5 - 16) 13 BUN (7 - 17 mg/dL) 28 H Creatinine (0.5 - 1.0 mg/dL) 0.7 Estimated GFR (>60 ml/min) > 60 BUN/Creatinine Ratio (7 - 25 %) 40.0 H Glucose (65 - 99 mg/dL) 134 H Calcium (8.4 - 10.2 mg/dL) 10.5 H Magnesium (1.6 - 2.3 mg/dL) 1.9 Total Bilirubin (0.2 - 1.3 mg/dL) 0.5 AST (14 - 36 U/L) 22 ALT (9 - 52 U/L) 24 Alkaline Phosphatase (<127 U/L) 86 Troponin I (< 0.11 ng/ml) < 0.01 Total Protein (6.3 - 8.2 g/dL) 7.5 Albumin (3.5 - 5.0 g/dL) 4.5 Globulin (1.9 - 4.2 gm/dL) 3.0 Albumin/Globulin Ratio (1.1 - 2.2 %) 1.5 Coagulation PT (9.4 - 12.5 SEC) 11.4 INR (0.90 - 1.19) 1.05 APTT (25 - 37 SEC) 30 D-Dimer High Sensitivty (0 - 243 ng/ml) < 200 Urines Urine Color (YEL,AMB,STR) STRAW Urine Clarity (CLEAR) CLEAR Urine pH (5.0 - 8.0) 6.5 Ur Specific Dewy Rose (1.001 - 1.035) 1.010 Urine Protein (NEG,<30 MG/DL) NEG Urine Ketones (NEG) NEG Urine Nitrite (NEG) NEG Urine Bilirubin (NEG) NEG Urine Urobilinogen (0.1 - 1.0 EU/dl) 0.2 Ur Leukocyte Esterase (NEG) NEG Ur Microscopic EXAM NOT REQUIRED Urine Hemoglobin (NEG) NEG Urine Glucose (N MG/DL) NEG 10/26 1830 Hematology CBC w Diff NO MAN DIFF REQ WBC (4.8 - 10.8 /CUMM) 11.0 H RBC (4.20 - 5.40 /CUMM) 4.78 Hgb (12.0 - 16.0 G/DL) 14.9 Hct (37 - 47 %) 44.4 MCV (81.0 - 99.0 FL) 93.1 MCH (27.0 - 31.0 PG) 31.1 H MCHC (33.0 - 37.0 G/DL) 33.4 RDW (11.5 - 14.5 %) 14.4 Plt Count (130 - 400 /CUMM) 303 MPV (7.4 - 10.4 FL) 8.6 Gran % (42.2 - 75.2 %) 79.6 H Lymphocytes % (20.5 - 51.1 %) 15.7 L Monocytes % (1.7 - 9.3 %) 4.4 Eosinophils % (0 - 5 %) 0 Basophils % (0.0 - 2.0 %) 0.3 Absolute Granulocytes (1.4 - 6.5 /CUMM) 8.7 H Absolute Lymphocytes (1.2 - 3.4 /CUMM) 1.7 Absolute Monocytes (0.10 - 0.60 /CUMM) 0.5 Absolute Eosinophils (0.0 - 0.7 /CUMM) 0 Absolute Basophils (0.0 - 0.2 /CUMM) 0 Assessment/Plan Assessment/Plan Assessment: 1. Dizziness/presyncope-by history, the patient's symptoms are most consistent with vertigo. I do not see any evidence of significant cardiac issues. 2. Atypical chest discomfort-at the moment, the patient's chest discomfort appears to be noncardiac. Her ECG is unremarkable and her serial troponins are negative. Echocardiogram is pending. 3. History of prior DVT, status post prophylactic IVC filter and subsequent removal. Currently anticoagulated 4. Hypertension 5. History of multiple myeloma status post chemotherapy 6. Unifocal ventricular ectopy Recommendation: -At the moment, the patient appears stable with no evidence of any significant cardiac issues. -Await echocardiogram for review -If the echo cardiac gram is unrevealing, the serial troponins are negative, the ECG remains unchanged, and the patient is asymptomatic, I think the patient can be safely discharged from a cardiac standpoint. -Any recurrence of her symptoms of discomfort, she can have a pharmacologic stress test as an outpatient. Consult Acknowledgment - Thank you for your consult request.
--- NOTE | 2017-10-27 15:31 | Patient Discharge Instructions ---
Discharge Instructions General Discharge Information You were seen/treated for: Pre-Syncope Atypical chest pain r/o ACS Special Instructions: Follow up with PCP after discharge Follow up with after discharge Follow up with PT for vestibular rehablitation Diet Continue normal diet: Yes Recommended Diet: Heart Healthy Activity Full Activity/No Limits: Yes Acute Coronary Syndrome Inclusion Criteria At DC or during hospital stay patient has or had the following: ACS DIAGNOSIS No Discharge Core Measures Meds if any: Prescribed or Continued at Discharge Meds if any: NOT Prescribed or Continued at Discharge Congestive Heart Failure Inclusion Criteria At DC or during hospital stay patient has or had the following: CHF DIAGNOSIS No Discharge Core Measures Meds if any: Prescribed or Continued at Discharge Meds if any: NOT Prescribed or Continued at Discharge Cerebrovascular accident Inclusion Criteria At DC or during hospital stay patient has or had the following: CVA/TIA Diagnosis No Discharge Core Measures Meds if any: Prescribed or Continued at Discharge Meds if any: NOT Prescribed or Continued at Discharge Venous thromboembolism Inclusion Criteria VTE Diagnosis No VTE Type NONE VTE Confirmed by (Test) NONE Discharge Core Measures - Per Current guidelines, there needs to be overlap - treatment for the first 5 days of Warfarin therapy. - If discharged on Warfarin prior to 5 days of - overlap therapy, the patient will need to be - assessed for post discharge needs including - *Post discharge parental anticoagulation - *Warfarin and/or parental anticoagulation education - *Follow up date to check INR post discharge At least 5 days overlap therapy as Inpatient No Meds if any: Prescribed or Continued at Discharge Note: Overlap Therapy is Warfarin and Anticoagulant Meds if any: NOT Prescribed or Continued at Discharge
[2017-10-27 17:59] VITALS: BP 166/97
--- NOTE | 2017-10-27 19:05 | ECHOCARDIOGRAM REPORT ---
MARGAUX COFFEY Age: 72 : 1945 Gender: F Exam Date: 10/27/2017 15:30 Exam Location: ER Ht (in): 61 Wt (lb): 160 BSA: 1.79 BP: 136 / 83 Ordering Physician: Serg Hays MD Referring Physician: Jatinder Moreau MD Technologist: Ninoska Baez RDCS Room Number: [id number] Indications: CHEST PAIN Rhythm: Sinus Technical Quality: Fair, Technically difficult study FINDINGS Left Ventricle Normal size left ventricle. No obvious regional wall motion abnormalities. Normal left ventricular ejection fraction estimated at 55-60%. Right Ventricle Right ventricle not well visualized, grossly normal. Right Atrium Normal right atrial size. Left Atrium Left atrial size at the upper limits of normal. Mitral Valve Mitral valve thickened. Mitral annular calcification. Trace mitral regurgitation. Aortic Valve Trileaflet aortic valve. Diffuse thickening (sclerosis) of the aortic valve cusps without reduced excursion. No aortic stenosis. Trace to mild aortic regurgitation. Tricuspid Valve Tricuspid valve not well visualized, grossly normal. Trace tricuspid regurgitation. Pulmonic Valve Pulmonic valve not well visualized, grossly normal. Trace pulmonic regurgitation. Pericardium No pericardial effusion. Great Vessels Normal size aortic root and proximal ascending aorta. CONCLUSIONS 1. Mild aortic sclerosis is present with minimal to mild aortic insufficiency 2. Mitral leaflet thickening is present with mild annular calcification and minimal mitral insufficiency 3. There is no significant pericardial fluid detected on the study. 4. The left ventricular chamber size and systolic function appear normal. There are no obvious resting wall motion abnormalities. 5. Minimal tricuspid and pulmonic insufficiency are present. The right ventricular systolic pressure was not accurately assessed. 6. No prior study was available for comparison. Jatinder Moreau M.D. (Electronically Signed) Final Date: 27 October 2017 19:04 MEASUREMENTS (Male / Female) Normal Values 2D ECHO LV Diastolic Diameter PLAX 4.0 cm 4.2 - 5.9 / 3.9 - 5.3 cm LV Systolic Diameter PLAX 1.9 cm 2.1 - 4.0 cm LV Fractional Shortening PLAX 52.5 % 25 - 46 % LV Ejection Fraction 2D Teich 84.0 % IVS Diastolic Thickness 1.1 cm LVPW Diastolic Thickness 1.1 cm LV Relative Wall Thickness 0.6 RV Internal Dim ED PLAX 2.3 cm 1.9 - 3.8 cm LVOT Diameter 1.9 cm Aortic Root Diameter 3.4 cm LA Systolic Diameter LX 3.6 cm 3.0 - 4.0 / 2.7 - 3.8 cm LA Volume 23.0 cm 18 - 58 / 22 - 52 cm Ascending Aorta Diameter 3.6 cm DOPPLER AV Peak Velocity 116.0 cm/s AV Peak Gradient 5.4 mmHg AV Mean Velocity 78.1 cm/s AV Mean Gradient 3.0 mmHg AV Velocity Time Integral 24.0 cm LVOT Peak Velocity 116.0 cm/s LVOT Peak Gradient 5.4 mmHg LVOT Mean Velocity 73.8 cm/s LVOT Mean Gradient 3.0 mmHg LVOT Velocity Time Integral 21.0 cm LVOT Stroke Volume 59.5 cm AV Area Cont Eq vti 2.5 cm AV Area Cont Eq pk 2.8 cm MV Peak Velocity 75.7 cm/s MV Peak Gradient 2.3 mmHg MV Mean Velocity 44.7 cm/s MV Mean Gradient 1.0 mmHg Mitral E Point Velocity 50.8 cm/s Mitral A Point Velocity 76.0 cm/s Mitral E to A Ratio 0.7 MV PHT Velocity 58.5 cm/s MV Deceleration Grainger 252.0 cm/s MV Pressure Half Time 69.6 ms MV Area PHT 3.2 cm MV Deceleration Time 296.0 ms TR Peak Velocity 116.0 cm/s TR Peak Gradient 5.4 mmHg Right Atrial Pressure 5.0 mmHg Pulmonary Artery Systolic Pressu 10.4 mmHg Right Ventricular Systolic Press 10.4 mmHg PV Peak Velocity 90.9 cm/s PV Peak Gradient 3.3 mmHg PV Mean Velocity 56.5 cm/s PV Mean Gradient 2.0 mmHg PV Velocity Time Integral 15.2 cm LV E' Lateral Velocity 8.3 cm/s Mitral E to LV E' Lateral Ratio 6.1 LV E' Septal Velocity 8.0 cm/s Mitral E to LV E' Septal Ratio 6.3
== END 2017-10-27 20:30 ==
LOC: ERH 18:00 → ERHI 20:38 → EDBEDREQ 22:28 → ERHI 10-27 07:49 → EDBEDREQTM 10-27 13:28 → EDBEDREQDT 10-27 13:28 → ENRESERV 10-27 13:41 → CANRESERV 10-27 13:41 → ERHI 10-27 20:30
PROVIDERS: Physician Assistant Medical; Student in an Organized Health Care Education/Training Program
DX: R42 Dizziness and giddiness (principal); I10 Essential (primary) hypertension; J45.909 Unspecified asthma, uncomplicated; Z86.718 Personal history of other venous thrombosis and embolism; Z79.01 Long term (current) use of anticoagulants; M81.0 Age-related osteoporosis without current pathological fracture; R07.89 Other chest pain; Z79.82 Long term (current) use of aspirin; M26.629 Arthralgia of temporomandibular joint, unspecified side; M54.9 Dorsalgia, unspecified; I49.3 Ventricular premature depolarization; G62.9 Polyneuropathy, unspecified; Z85.79 Personal history of other malignant neoplasms of lymphoid, hematopoietic and related tissues
CPT/HCPCS: 6090; 71046; 81003; 82436; 93005; 93010; 93306; 97112-GP; 97116-GP; 97161-GP; G0378; G8978-GP; G8979-GP; J3490